=== PATIENT | male | born 1965 | race Caucasian/White ===

== ENCOUNTER 2017-06-12 20:45 | Inpatient (IN) | payer MEDICARE, MEDICAID ==
[~2017-06-12] VITALS: Ht 182.9 cm; Wt 104.5 kg
[~2017-06-12 20:45] MED LIST: ALBU18HF INHALATION; ASPI-664 PO; CYCL-319 PO; D-ME473S2 PO; FLUT16SP17 NASAL; FURO-110 PO; HYDR-3011 PO; IBUP-1542 PO; LISI20TA11 PO; METO-429 PO; POTA-57 PO; PRAV40TA76 PO; PROP150T2 PO; SERT25TA83 PO
[2017-06-12] MEDS ORDERED: ASPIRIN 325 MG TAB PO STA (23:33)
[2017-06-12] MEDS ORDERED: morphine 4 MG/ML VIAL IV STA (23:33)
[2017-06-12] MEDS ORDERED: ONDANSETRON 4 MG INJ IV STA (23:33)
[2017-06-12] MEDS ORDERED: SOD CHLORIDE 0.9% 500 ML IV STA (23:33)
[2017-06-13 00:44] LABS: BASOPHILS % 0.3 % (0.0-2.0); EOSINOPHILS # 0.1 10^3/ul (0.0-0.5); EOSINOPHILS % 1.1 % (0.0-7.0); HEMATOCRIT 41.7 % (42.0-52.0); LYMPHOCYTES # 1.8 10^3/ul (0.8-2.9); LYMPHOCYTES % 22.8 % (15.0-51.0); MEAN CORPUSCULAR HEMOGLOBIN 27.4 pg (29.0-33.0); MEAN CORPUSCULAR HGB CONC 31.2 g/dl (32.0-37.0); MEAN CORPUSCULAR VOLUME 87.8 fl (82.0-101.0); MONOCYTE # 0.6 10^3/ul (0.3-0.9); MONOCYTES % 7.4 % (0.0-11.0); PLATELET COUNT 186 10^3/UL (140-415); RED BLOOD COUNT 4.75 10^6/ul (4.70-6.10); RED CELL DISTRIBUTION WIDTH 13.4 % (11.5-14.5)
[2017-06-13 01:02] LABS: ALBUMIN 4.1 g/dl (3.3-4.9); ALBUMIN/GLOBULIN RATIO 0.82; BILIRUBIN,INDIRECT 0.1 mg/dl (0-1.1); BILIRUBIN,TOTAL 0.1 mg/dl (0.2-1.3); CREATININE 1.44 mg/dl (0.61-1.24); POTASSIUM 4.3 mmol/L (3.5-5.1); TOTAL PROTEIN 9.1 g/dl (6.1-8.1)
[2017-06-13 01:15] LABS: TROPONIN-I 0.027 ng/ml (0.00-0.12)
--- NOTE | 2017-06-13 01:28 | RADRPT ---
PROCEDURE: XR Chest. CLINICAL INDICATION: Chest pain. TECHNIQUE: Single frontal view of the chest. COMPARISON: 06/04/2017. FINDINGS: Cardiomegaly with tortuous thoracic aorta. Mild hypoinflation of the bilateral lungs. Mild vascula r crowding at lung bases. Mild discoid atelectasis at the right mid lung. Hypoinflated lungs are oth erwise substantially clear. No signs of pleural fluid or pneumothorax are seen. The osseous structu res and soft tissues are unremarkable. IMPRESSION: Mild discoid atelectasis at the right mid lung, with mild hypoinflation of the bilateral lungs. RPTAT: [facility] Physician Bernard Date Time Electronically viewed and signed by Physician Bernard on 06/13/2017 01:28 RS/
[2017-06-13] MEDS ORDERED: POTA-57 PO (02:05)
--- NOTE | 2017-06-13 03:40 | ERA ---
ER Documentation Chief Complaint Date/Time DATE: 06/13/17 TIME: 03:39 Chief Complaint CHEST PAIN RADIATING TO NECK/LEFT SHOULDER, SOB HPI 55-year-old male which is very radiated to his neck and left shoulder. With associated shortness of breath. Mild diaphoresis. No nausea no vomiting no chills. Pain mild to moderate intensity. Crushing substernal that radiates to the left side. ROS All systems reviewed and are negative except as per history of present illness. Medications Home Meds Reported Medications Potassium Chloride* (Klor-Con*) 20 Meq Tabsr, 20 MEQ PO DAILY, TAB.SA 06/13/17 Cyclobenzaprine Hcl* (Cyclobenzaprine Hcl*) 10 Mg Tablet, 10 MG PO TID, #90 TAB 06/04/17 Aspirin* (Aspirin* EC) 81 Mg Tablet.dr, 81 MG PO DAILY, TAB 06/04/17 Albuterol Sulfate* (Ventolin HFA*) 18 Gm Hfa.aer.ad, 2 PUFF INHALATION Q4H Y for NEEDED, #1 INHALER 06/04/17 Sertraline Hcl* (Sertraline Hcl*) 25 Mg Tablet, 25 MG PO QAM, #30 TAB 06/04/17 Propafenone Hcl* (Propafenone Hcl*) 150 Mg Tablet, 225 MG PO Q8, TAB 06/04/17 Pravastatin Sodium* (Pravastatin Sodium*) 40 Mg Tablet, 40 MG PO HS, TAB 06/04/17 Metoprolol Tartrate* (Lopressor*) 50 Mg Tab, 50 MG PO BID, #60 TAB 06/04/17 Lisinopril* (Lisinopril*) 20 Mg Tablet, 20 MG PO DAILY, #30 TAB 06/04/17 Furosemide* (Lasix*) 20 Mg Tablet, 20 MG PO DAILY, TAB 06/04/17 Ibuprofen* (Ibuprofen*) 600 Mg Tablet, 600 MG PO Q8 Y for PRN, TAB 06/04/17 Potassium Chloride* (Klor-Con*) 20 Meq Tabsr, 20 MEQ PO DAILY, TAB.SA 06/04/17 Hydroxyzine Hcl* (Hydroxyzine Hcl*) 25 Mg Tablet, 50 MG PO QHS Y for ITCHING, # 30 TAB 06/04/17 Fluticasone Propionate* (Fluticasone Propionate* Nasal) 50 Mcg/[place] - 16 Gm [place].susp, 1 SPRAY NASAL DAILY, #1 BOTTLE TO EACH NOSTRIL 06/04/17 Dextromethorphan Hb-Promethazine Hcl* (Promethazine DM* Syrup) 473 Ml Syrup, 5 ML PO Q6 Y for COUGH, ML 06/04/17 Allergies Allergies: Coded Allergies: aripiprazole (Unverified Adverse Reaction, Unknown, 06/13/17) benztropine (Unverified Adverse Reaction, Unknown, 06/13/17) buspirone (Unverified Adverse Reaction, Unknown, 06/13/17) cocaine (Unverified Adverse Reaction, Unknown, 06/13/17) codeine (Unverified Adverse Reaction, Unknown, 06/13/17) divalproex sodium (Unverified Adverse Reaction, Unknown, 06/13/17) haloperidol (Unverified Adverse Reaction, Unknown, 06/13/17) lithium (Unverified Adverse Reaction, Unknown, 06/13/17) methylphenidate (Unverified Adverse Reaction, Unknown, 06/13/17) paroxetine (Unverified Adverse Reaction, Unknown, 06/13/17) quetiapine (Unverified Adverse Reaction, Unknown, 06/13/17) trazodone (Unverified Adverse Reaction, Unknown, 06/13/17) trimipramine (Unverified Adverse Reaction, Unknown, 06/13/17) PMhx/Soc History of Surgery: Yes (l carpal tunnel, l knee) Anesthesia Reaction: No Hx Neurological Disorder: Yes (TBI - AGE 5) Hx Respiratory Disorders: Yes (asthma) Hx Cardiac Disorders: Yes (a fib, htn) Hx Psychiatric Problems: Yes (anxiety, PTSD, bipolar, schizophrenia) Hx Alcohol Use: No Hx Substance Use: No Hx Tobacco Use: No Smoking Status: Never smoker Physical Exam Vitals Vital Signs Date Time Temp Pulse Resp B/P Pulse Ox O2 Delivery O2 Flow Rate FiO2 06/13/17 02:00 98.7 76 12 133/85 100 Nasal Cannula 06/13/17 00:45 98.4 76 16 137/94 100 Nasal Cannula 06/12/17 23:40 98.4 16 122/88 95 Room Air 06/12/17 21:06 98.3 102 18 133/77 97 Physical Exam Const: [] Head: Atraumatic Eyes: Normal Conjunctiva ENT: Normal External Ears, Nose and Mouth. Neck: Full range of motion..~ No meningismus. Resp: Clear to auscultation bilaterally Cardio: Regular rate and rhythm, no murmurs Abd: Soft, non tender, non distended. Normal bowel sounds Skin: No petechiae or rashes Back: No midline or flank tenderness Ext: No cyanosis, or edema Neur: Awake and alert Psych: Normal Mood and Affect Result Diagram: 06/12/173 06/12/173 Results 24 hrs Laboratory Tests Test 06/12/17 23:33 White Blood Count 8.010^3/ul Red Blood Count 4.7510^6/ul Hemoglobin 13.0g/dl Hematocrit 41.7% Mean Corpuscular Volume 87.8fl Mean Corpuscular Hemoglobin 27.4pg Mean Corpuscular Hemoglobin Concent 31.2g/dl Red Cell Distribution Width 13.4% Platelet Count 07911^3/UL Mean Platelet Volume 11.0fl Neutrophils % 68.0% Lymphocytes % 22.8% Monocytes % 7.4% Eosinophils % 1.1% Basophils % 0.3% Nucleated Red Blood Cells % 0.0/100WBC Neutrophils # (Manual) 5.410^3/ul Lymphocytes # 1.810^3/ul Monocytes # 0.610^3/ul Eosinophils # 0.110^3/ul Basophils # 0.010^3/ul Nucleated Red Blood Cells # 0.010^3/ul Sodium Level 141mmol/L Potassium Level 4.3mmol/L Chloride Level 98mmol/L Carbon Dioxide Level 29mmol/L Anion Gap 18 Blood Urea Nitrogen 21mg/dl Creatinine 1.44mg/dl Glucose Level 93mg/dl Calcium Level 9.0mg/dl Total Bilirubin 0.1mg/dl Direct Bilirubin 0.00mg/dl Indirect Bilirubin 0.1mg/dl Aspartate Amino Transf (AST/SGOT) 34IU/L Alanine Aminotransferase (ALT/SGPT) 26IU/L Alkaline Phosphatase 76IU/L Troponin I 0.027ng/ml B-Type Natriuretic Peptide 21PG/ML Total Protein 9.1g/dl Albumin 4.1g/dl Globulin 5.00g/dl Albumin/Globulin Ratio 0.82 Current Medications Medications (Trade) Dose Ordered Sig/Caroline Route PRN Reason Start Time Stop Time Status Last Admin Dose Admin Sodium Chloride (NS) 500 ml @ 500 mls/hr Q1H STAT IV 06/12/17 23:33 06/13/17 00:32 DC 06/12/17 23:39 Aspirin (Aspirin) 325 mg ONCE STAT PO 06/12/17 23:33 06/12/17 23:34 DC 06/12/17 23:41 Morphine Sulfate (morphine) 4 mg ONCE STAT IV 06/12/17 23:33 06/12/17 23:34 DC 06/12/17 23:44 Ondansetron HCl (Zofran Inj) 4 mg ONCE STAT IV 06/12/17 23:33 06/12/17 23:34 DC 06/12/17 23:41 Procedures/MDM EKG: Rate/Rhythm: Normal Sinus Rhythm QRS, ST, T-waves: No changes consistent w/ acute ischemia Impression: No evidence of ischemia or arrhythmia Chest X-ray 1V Interpreted by me: Soft Tissue: No acute abnormalities Bones: No acute abnormalities Mediastinum/Cardiac Silhouette/Lungs: No acute abnormalities Patient's symptoms are concerning for cardiac cause will require inpatient workup and continuous monitoring. Further w/u for ischemia, arrhythmia, PE or dissection will be deferred to the inpatient team. Accepting Care Team: Current data and ongoing care discussed. Time: 3:30 AM Primary Provider: Hospitalist Consulting: [XOXOXO] Outstanding Data: none Departure Diagnosis: Primary Impression: Chest pain Qualified Code: R07.9 - Chest pain, unspecified type Condition: Serious JAILENE HADLEY Jun 13, 2017 03:40
[2017-06-13] MEDS ORDERED: ONDANSETRON 4 MG INJ IV PRN (07:00)
[2017-06-13] MEDS ORDERED: PROMETHAZINE/DM (CUP) PO PRN (07:00)
[2017-06-13] MEDS ORDERED: ALBUTEROL/IPRATROPIUM (NEB) 3 ML AMP HHN PRN (07:00)
[2017-06-13] MEDS ORDERED: morphine 2 MG INJ IV PRN (07:00)
[2017-06-13] MEDS ORDERED: NACL 0.9% 3 ML SYG IV SCH (07:00)
[2017-06-13] MEDS ORDERED: LORAZEPAM 2 MG INJ IV PRN (07:00)
[2017-06-13] MEDS ORDERED: hydrOXYzine HCL 25 MG TAB PO PRN (07:00)
[2017-06-13] MEDS ORDERED: IBUPROFEN 600 MG TAB PO PRN (07:00)
[2017-06-13] MEDS ORDERED: ACETAMINOPHEN 325 MG TAB PO PRN (07:00)
[2017-06-13 08:59] LABS: BASOPHILS % 0.2 % (0.0-2.0); EOSINOPHILS # 0.1 10^3/ul (0.0-0.5); EOSINOPHILS % 1.1 % (0.0-7.0); HEMATOCRIT 39.9 % (42.0-52.0); HEMOGLOBIN 12.8 g/dl (14.0-18.0); LYMPHOCYTES # 1.4 10^3/ul (0.8-2.9); LYMPHOCYTES % 26.2 % (15.0-51.0); MEAN CORPUSCULAR HEMOGLOBIN 28.2 pg (29.0-33.0); MEAN CORPUSCULAR HGB CONC 32.1 g/dl (32.0-37.0); MEAN CORPUSCULAR VOLUME 87.9 fl (82.0-101.0); MEAN PLATELET VOLUME 10.2 fl (7.4-10.4); MONOCYTE # 0.4 10^3/ul (0.3-0.9); MONOCYTES % 7.7 % (0.0-11.0); NEUTROPHILS % 64.6 % (39.0-77.0); PLATELET COUNT 145 10^3/UL (140-415); RED BLOOD COUNT 4.54 10^6/ul (4.70-6.10); RED CELL DISTRIBUTION WIDTH 13.1 % (11.5-14.5); WHITE BLOOD COUNT 5.3 10^3/ul (4.8-10.8)
[2017-06-13] MEDS ORDERED: LISINOPRIL 20 MG TAB PO SCH (09:00)
[2017-06-13] MEDS ORDERED: ALBUTEROL HFA 8 GM INHALER INH PRN (09:00)
[2017-06-13 09:21] LABS: ALBUMIN 3.5 g/dl (3.3-4.9); ALBUMIN/GLOBULIN RATIO 0.87; BILIRUBIN,INDIRECT 0.1 mg/dl (0-1.1); BILIRUBIN,TOTAL 0.1 mg/dl (0.2-1.3); CALCIUM 8.6 mg/dl (8.4-10.2); CHOL/HDL RATIO 1.8 RATIO; CREATININE 1.32 mg/dl (0.61-1.24); POTASSIUM 4.5 mmol/L (3.5-5.1); TOTAL PROTEIN 7.5 g/dl (6.1-8.1)
[2017-06-13 09:29] LABS: CK-MB 1.98 ng/ml (0.0-2.4)
[2017-06-13 09:34] LABS: TROPONIN-I 0.031 ng/ml (0.00-0.12)
[2017-06-13] MEDS: CYCLOBENZAPRINE 10 MG TAB PO SCH ×3 (09:35→21:48)
[2017-06-13] MEDS: POTASSIUM CHLORIDE (SR) 20 MEQ TAB PO SCH (09:35)
[2017-06-13] MEDS: METOPROLOL 50 MG TAB PO SCH ×2 (09:35→20:55)
[2017-06-13] MEDS: FUROSEMIDE 20 MG TAB PO SCH (09:36)
[2017-06-13] MEDS: HEPARIN 5,000 UNIT/0.5 ML VIAL SC SCH ×2 (09:37→21:00)
[2017-06-13 09:50] LABS: THYROID STIMULATING HORMONE 1.22 MIU/L (0.465-4.680)
--- NOTE | 2017-06-13 09:56 | HP ---
Date/Time of Note Date/Time of Note DATE: 06/13/17 TIME: 09:46 Assessment/Plan VTE Prophylaxis VTE Prophylaxis Intervention: heparin Lines/Catheters IV Catheter Type (from Nrsg): Saline Lock Assessment/Plan Assessment/Plan 1. Chest pain: Pain was reproducible on palpation and as such believe this is musculoskeletal. Given his psychiatric history however it will be better if he is ruled out for ACS. Will send additional troponins. Obtain a 2D echo -Supplemental oxygen, aspirin and if blood pressure allows beta-duy. Will also provide as needed nitro and morphine 2. History of A-fib: Currently in sinus rhythm -Continue meds 3. History of hypertension -Continue antihypertensives adjustment as needed 4. History of asthma and sleep apnea -Supplemental oxygen, breathing treatments and as needed steroid -Positive pressure ventilation as needed 5. Schizophrenia/bipolar/PTSD: pt currently denying suicidal or homicidal ideation. Note however that he was here in the ER about a week ago reporting suicidal ideation and at that time he was evaluated by telemetry psych. -Continue psych meds 6. Chronic kidney disease -Avoid nephrotoxins -Nephrology consult 7. Obesity with a BMI of 31 -Weight reduction advised HPI/ROS Admit Date/Time Admit Date/Time Hx of Present Illness This is a 51-year-old male with a history of traumatic brain injury, hypertension, A. fib, asthma, schizophrenia, bipolar disorder, PTSD, sleep apnea and CKD who presented to the emergency department complaining of chest pain. He said pain started a few hours prior to arrival to the ER. Chest pain is left-sided with radiation to the left side of his neck. He reported shortness of breath but denied nausea vomiting or diaphoresis. He actually said chest pain is somehow better when walking. Denied similar chest pain in the past. On my physical exam, pain was reproducible on palpation. Of note the patient presented here to our ER about a week ago reporting suicidal ideation. At that time he was evaluated by telemetry psych. When he presented to the ER today, initial vitals were stable. Labs shows that his first troponin is negative, creatinine is 1.44, hemoglobin 13 otherwise rest of his labs are within acceptable range. EKG was no ST-T wave abnormality. Chest x-ray shows right midlung discoid atelectasis. PMH/Family/Social Past Medical History traumatic brain injury, hypertension, A. fib, asthma, schizophrenia, bipolar disorder, PTSD, sleep apnea and CKD Social History Alcohol Use: none Smoking Status: Never smoker Drug Use: none Exam/Review of Systems Vital Signs Vitals Vital Signs Date Time Temp Pulse Resp B/P Pulse Ox O2 Delivery O2 Flow Rate FiO2 06/13/17 07:58 61 18 114/67 98 Nasal Cannula 2.0 06/13/17 04:44 98.4 Exam Constitutional: other (Overweight male lying in the gurney. Sleepy but arousable. No acute distress) Head: atraumatic, normocephalic Eyes: EOMI, PERRL Respiratory: clear to auscultation, normal air movement Cardiovascular: nl pulses, regular rate and rhythm Gastrointestinal: non-tender, soft Extremities: normal pulses Labs Result Diagram: 06/13/1782206/13/17822 Medications Medications Current Medications Lorazepam (Ativan) 0.5 mg Q6H PRN IV ANXIETY; Start 06/13/17 at 07:00 Ondansetron HCl (Zofran Inj) 4 mg Q6H PRN IV NAUSEA AND/OR VOMITING; Start at 07:00 Acetaminophen (Tylenol Tab) 650 mg Q6H PRN PO PAIN LEVEL 1-3 OR FEVER; Start at 07:00 Morphine Sulfate (morphine) 2 mg Q4H PRN IV PAIN LEVEL 7-10; Start 06/13/17 at 07:00 Heparin Sodium (Porcine) (Heparin (5000 Units/0.5 ml)) 5,000 unit Q12 SC Last administered on 06/13/17 09:37; Admin Dose 5,000 UNIT; Start 06/13/17 at 09:00 Aspirin (Halfprin) 81 mg DAILY PO ; Start 06/13/17 at 09:00 Cyclobenzaprine HCl (Flexeril) 10 mg TID PO Last administered on 06/13/17 09: 35; Admin Dose 10 MG; Start 06/13/17 at 09:00 Promethazine HCl/ Dextromethorphan (Phenergan-Dm) 5 ml Q6H PRN PO COUGH; Start 06/13/17 at 07:00 Fluticasone Propionate (Flonase 0.05% Nasal) 1 spray DAILY NASAL ; Start at 09:00 Furosemide (Lasix) 20 mg DAILY PO Last administered on 06/13/17 09:36; Admin Dose 20 MG; Start 06/13/17 at 09:00 Hydroxyzine HCl (Atarax) 50 mg QHS PRN PO ITCHING; Start 06/13/17 at 07:00 Ibuprofen (Motrin) 600 mg Q8H PRN PO PAIN; Start 06/13/17 at 07:00 Lisinopril (Zestril) 20 mg DAILY PO ; Start 06/13/17 at 09:00 Metoprolol Tartrate (Lopressor) 50 mg BID PO Last administered on 06/13/17 09: 35; Admin Dose 50 MG; Start 06/13/17 at 09:00 Potassium Chloride (Klor-Con 20) 20 meq DAILY PO Last administered on 09:35; Admin Dose 20 MEQ; Start 06/13/17 at 09:00 Propafenone HCl (Rythmol) 225 mg Q8 PO ; Start 06/13/17 at 14:00 Sertraline HCl (Zoloft) 25 mg QAM PO ; Start 06/13/17 at 09:00 Atorvastatin Calcium (Lipitor) 10 mg DAILY@21 PO ; Start 06/13/17 at 21:00 JAILENE PHILLIPS MD Jun 13, 2017 09:56
[2017-06-13] MEDS: FLUTICASONE 0.05% 16 GM NAS SPRAY NASAL SCH (10:08)
[2017-06-13] MEDS: ASPIRIN (EC) 81 MG TAB PO SCH (10:08)
[2017-06-13] MEDS: SERTRALINE 50 MG TAB PO SCH (10:09)
[2017-06-13 11:47] LABS: ADD UMIC NO; UR AMORPHOUS CRYSTAL FEW /HPF (NONE SEEN); UR ASCORBIC ACID NEGATIVE (NEGATIVE); UR BILIRUBIN (Dip) NEGATIVE (NEGATIVE); UR BLOOD (Dip) NEGATIVE (NEGATIVE); UR CLARITY SLIGHTLY CLOUDY (CLEAR); UR COLOR YELLOW (YELLOW); UR GLUCOSE (Dip) NEGATIVE (NEGATIVE); UR KETONES (Dip) NEGATIVE (NEGATIVE); UR LEUKOCYTE ESTERASE (Dip) NEGATIVE Leu/ul (NEGATIVE); UR NITRITE (Dip) NEGATIVE (NEGATIVE); UR RBC 1 /HPF (0-5); UR SPECIFIC GRAVITY (Dip) 1.012 (1.003-1.030); UR TOTAL PROTEIN (Dip) NEGATIVE (NEGATIVE); UR UROBILINOGEN (Dip) NEGATIVE (NEGATIVE)
--- NOTE | 2017-06-13 12:22 | CONS ---
DATE OF ADMISSION: 06/12/2017 DATE OF CONSULTATION: 06/13/2017 REASON FOR CONSULTATION: Acute kidney injury. REFERRING PHYSICIAN: Daivd Ayala MD HISTORY OF PRESENT ILLNESS: This is a 51-year-old male with a past medical history traumatic brain injury. History of hypertension, a-fib, asthma, schizophrenia, bipolar disorder, post-traumatic stress disorder, sleep apnea and reported history of CKD, who presents emergency room complaining of chest pain. The patient's symptoms started a few hours prior to arrival. He describe left-sided pain, with radiation to his neck, with shortness of breath. The patient came to the emergency room. Upon arrival, the patient's initial troponin was negative his creatinine is 1.44. The patient had EKG which showed no ST wave abnormality. Chest x-ray showed discoid atelectasis. In the emergency room patient was given IV fluids, aspirin. In terms of patient's renal history, the patient herself is unaware of having chronic kidney disease. The patient denies any rashes, hemoptysis, hematemesis or hematochezia. Of note, patient does take KETURAH inhibitor and ibuprofen in the outpatient setting, and diuretics. PAST MEDICAL HISTORY: As stated above. History of traumatic brain injury. Hypertension, a-fib, asthma, schizophrenia, posttraumatic stress disorder, bipolar disorder, sleep apnea and CKD. SOCIAL HISTORY: Does not drink, smoke, or do drugs. FAMILY HISTORY: Noncontributory. MEDICATION: Reviewed. PAST SURGICAL HISTORY: None. REVIEW OF SYSTEMS: A 14 point review of systems was conducted. Pertinent positives are stated in HPI, otherwise negative. PHYSICAL EXAMINATION: VITAL SIGNS: Blood pressure 136/92, respirations 18, pulse 72, temperature 98.4. HEENT: Head is normocephalic. NECK: Supple. HEART: Regular rate. LUNGS: Diminished breath sounds at the base. ABDOMEN: Soft, nontender to palpation. No guarding. EXTREMITIES: Negative for clubbing, cyanosis. No edema. DERMATOLOGIC: No rashes. MUSCULOSKELETAL: No joint effusion. NEUROLOGIC: No change in exam. MEDICATION: Patient medications reviewed. LABORATORY: Show sodium 143, potassium 4.5, chloride 102, BUN 60, creatinine 1.28. White count 5.3, hemoglobin 9.8, hematocrit 29.9, platelet count is 145,000. IMPRESSION AND PLAN: 1. Nonoliguric acute kidney injury with unknown baseline creatinine. Etiology may be secondary to a hemodynamics, diuretic therapy. KETURAH inhibitor effect, nonsteroidal anti- inflammatory drugs use. The patient's renal function has improved with some mild IV hydration. Plan at this point is to do a full evaluation. Will check UA with microanalysis. Check urine electrolytes. Check renal ultrasound. Would recommend to hold nonsteroidal anti-inflammatory drugs, KETURAH inhibitor at this time. Would otherwise continue supportive care. Renally dose medications. Avoid nephrotoxins. 2. Anemia, monitor hemoglobin and hematocrit levels. 3. Mineral bone disorder. Monitor calcium and phosphorus levels. 4. Hypertension. Continue current blood pressure regimen. 5. Chest pain. The patient being ruled out for acute coronary syndrome. Continue to monitor. Follow up with Cardiology. 6. Atrial fibrillation. Currently in sinus rhythm. 7. History of asthma, sleep apnea, continue supplemental oxygen. 8. History of bipolar disorder, schizophrenia. Continue current treatment plan. Thank you, Dr. Ayala, for this interesting consult. It will be a pleasure to follow patient with you throughout the hospital course. Dictated By: Omari Glasgow DO /latasha/cristopher /Document#: [id number]
--- NOTE | 2017-06-13 13:10 | PN ---
Date/Time of Note Date/Time of Note DATE: 06/13/17 TIME: 13:02 Assessment/Plan VTE Prophylaxis VTE Prophylaxis Intervention: LMWH Lines/Catheters IV Catheter Type (from Nrs): Saline Lock Assessment/Plan Chief Complaint/Hosp Course S: Events noted O: vss; sr PE no pallor/jvd s1s2 reg; no m/r/g ctab; tender bs+ nt nd; no r/r/g no edema/ Sukh's A/P 1. Atypical Chest Pain; stable, ro acs. probably msclskltl. 2. Chr Htn/DL/obesity/metabolic syndrome; cont rfm. 3. CKD; avoid nsaids 4. Chr bipolor/schizophrenia/ptsd; supportive care 5. Permanent? A Fib 6. H/o TBI 7. Chr JOSE 8. Pre Dm 5.5 9. Chr Asthma Problems: Exam/Review of Systems Vital Signs Vitals Vital Signs Date Time Temp Pulse Resp B/P Pulse Ox O2 Delivery O2 Flow Rate FiO2 06/13/17 11:05 98.2 73 18 136/108 99 Nasal Cannula 2.0 Results Result Diagram: 06/13/17 0823 06/13/17 0823 Results 24 hrs Laboratory Tests Test 06/12/17 23:33 06/13/17 08:23 06/13/17 10:40 White Blood Count 8.0 # 5.3 # Red Blood Count 4.75 4.54 L Hemoglobin 13.0 L 12.8 L Hematocrit 41.7 L 39.9 L Mean Corpuscular Volume 87.8 87.9 Mean Corpuscular Hemoglobin 27.4 L 28.2 L Mean Corpuscular Hemoglobin Concent 31.2 L 32.1 Red Cell Distribution Width 13.4 13.1 Platelet Count 186 # 145 # Mean Platelet Volume 11.0 H 10.2 Neutrophils % 68.0 64.6 Lymphocytes % 22.8 26.2 Monocytes % 7.4 7.7 Eosinophils % 1.1 1.1 Basophils % 0.3 0.2 Nucleated Red Blood Cells % 0.0 0.0 Neutrophils # (Manual) 5.4 3.4 Lymphocytes # 1.8 1.4 Monocytes # 0.6 0.4 Eosinophils # 0.1 0.1 Basophils # 0.0 0.0 Nucleated Red Blood Cells # 0.0 0.0 Sodium Level 141 143 Potassium Level 4.3 4.5 Chloride Level 98 102 Carbon Dioxide Level 29 30 Anion Gap 18 H 16 Blood Urea Nitrogen 21 H 16 Creatinine 1.44 H 1.32 H Glucose Level 93 86 Calcium Level 9.0 8.6 Total Bilirubin 0.1 L 0.1 L Direct Bilirubin 0.00 0.00 Indirect Bilirubin 0.1 0.1 Aspartate Amino Transf (AST/SGOT) 34 21 Alanine Aminotransferase (ALT/SGPT) 26 29 Alkaline Phosphatase 76 63 Troponin I 0.027 0.031 B-Type Natriuretic Peptide 21 Total Protein 9.1 H 7.5 # Albumin 4.1 3.5 Globulin 5.00 H 4.00 H Albumin/Globulin Ratio 0.82 0.87 Hemoglobin A1c 5.5 Creatine Kinase 407 H Creatine Kinase Index 0.5 Creatinine Kinase MB (Mass) 1.98 Triglycerides Level 69 Cholesterol Level 87 L LDL Cholesterol, Calculated 26 HDL Cholesterol 47 Cholesterol/HDL Ratio 1.8 Thyroid Stimulating Hormone (TSH) 1.220 Urine Color YELLOW Urine Clarity SLIGHTLY CLOUDY A Urine pH 8.0 Urine Specific [place] 1.012 Urine Ketones NEGATIVE Urine Nitrite NEGATIVE Urine Bilirubin NEGATIVE Urine Urobilinogen NEGATIVE Urine Leukocyte Esterase NEGATIVE Urine Microscopic RBC 1 Urine Microscopic WBC 1 Urine Amorphous Crystals FEW A Urine Hemoglobin NEGATIVE Urine Random Creatinine 81.64 Urine Random Sodium 128 H Urine Glucose NEGATIVE Urine Total Protein 12.0 H Medications Medications Current Medications Lorazepam (Ativan) 0.5 mg Q6H PRN IV ANXIETY; Start 06/13/17 at 07:00 Ondansetron HCl (Zofran Inj) 4 mg Q6H PRN IV NAUSEA AND/OR VOMITING; Start at 07:00 Acetaminophen (Tylenol Tab) 650 mg Q6H PRN PO PAIN LEVEL 1-3 OR FEVER; Start at 07:00 Morphine Sulfate (morphine) 2 mg Q4H PRN IV PAIN LEVEL 7-10; Start 06/13/17 at 07:00 Heparin Sodium (Porcine) (Heparin (5000 Units/0.5 ml)) 5,000 unit Q12 SC Last administered on 06/13/17 09:37; Admin Dose 5,000 UNIT; Start 06/13/17 at 09:00 Aspirin (Halfprin) 81 mg DAILY PO Last administered on 06/13/17 10:08; Admin Dose 81 MG; Start 06/13/17 at 09:00 Cyclobenzaprine HCl (Flexeril) 10 mg TID PO Last administered on 06/13/17 09: 35; Admin Dose 10 MG; Start 06/13/17 at 09:00 Promethazine HCl/ Dextromethorphan (Phenergan-Dm) 5 ml Q6H PRN PO COUGH; Start 06/13/17 at 07:00 Fluticasone Propionate (Flonase 0.05% Nasal) 1 spray DAILY NASAL Last administered on 06/13/17 10:08; Admin Dose 1 SPRAY; Start 06/13/17 at 09:00 Furosemide (Lasix) 20 mg DAILY PO Last administered on 06/13/17 09:36; Admin Dose 20 MG; Start 06/13/17 at 09:00 Hydroxyzine HCl (Atarax) 50 mg QHS PRN PO ITCHING; Start 06/13/17 at 07:00 Ibuprofen (Motrin) 600 mg Q8H PRN PO PAIN; Start 06/13/17 at 07:00 Lisinopril (Zestril) 20 mg DAILY PO Last administered on 06/13/17 10:08; Admin Dose 20 MG; Start 06/13/17 at 09:00; Status Future Hold Metoprolol Tartrate (Lopressor) 50 mg BID PO Last administered on 06/13/17 09: 35; Admin Dose 50 MG; Start 06/13/17 at 09:00 Potassium Chloride (Klor-Con 20) 20 meq DAILY PO Last administered on 09:35; Admin Dose 20 MEQ; Start 06/13/17 at 09:00 Propafenone HCl (Rythmol) 225 mg Q8 PO ; Start 06/13/17 at 14:00 Sertraline HCl (Zoloft) 25 mg QAM PO Last administered on 06/13/17 10:09; Admin Dose 25 MG; Start 06/13/17 at 09:00 Atorvastatin Calcium (Lipitor) 10 mg DAILY@21 PO ; Start 06/13/17 at 21:00 IGGY BARRERA MD Jun 13, 2017 13:10
[2017-06-13] MEDS: PROPAFENONE 150 MG TAB PO SCH ×4 (13:24→21:54)
[2017-06-13] MEDS ORDERED: DOCUSATE SODIUM 10 MG/ML (10ML CUP) PO PRN (13:30)
[2017-06-13 17:12] VITALS: TEMP 98.2
[2017-06-13 17:53] VITALS: BP 129/79; PULSE 70; RESP 18
[2017-06-13 18:00] VITALS: Ht 182.9 cm; Wt 104.5 kg
[2017-06-13 19:49] LABS: CK-MB 1.25 ng/ml (0.0-2.4); TROPONIN-I 0.015 ng/ml (0.00-0.12)
[2017-06-13 20:26] VITALS: PULSE 66
[2017-06-13 20:36] VITALS: BP 126/65; RESP 18
[2017-06-13] MEDS: ATORVASTATIN 10 MG TAB PO SCH (20:55)
[2017-06-14] VITALS (13 sets, daily range): BP systolic 120–143; BP diastolic 65–80; PULSE 60–63; RESP 18–19
[2017-06-14] MEDS: PROPAFENONE 150 MG TAB PO SCH ×3 (05:48→21:20)
[2017-06-14 08:16] LABS: BASOPHILS % 0.2 % (0.0-2.0); EOSINOPHILS # 0.1 10^3/ul (0.0-0.5); EOSINOPHILS % 1.4 % (0.0-7.0); HEMOGLOBIN 12.8 g/dl (14.0-18.0); LYMPHOCYTES # 1.2 10^3/ul (0.8-2.9); LYMPHOCYTES % 24.9 % (15.0-51.0); MEAN CORPUSCULAR HEMOGLOBIN 27.6 pg (29.0-33.0); MEAN CORPUSCULAR HGB CONC 31.2 g/dl (32.0-37.0); MEAN CORPUSCULAR VOLUME 88.4 fl (82.0-101.0); MEAN PLATELET VOLUME 10.2 fl (7.4-10.4); MONOCYTE # 0.3 10^3/ul (0.3-0.9); NEUTROPHILS % 65.9 % (39.0-77.0); PLATELET COUNT 149 10^3/UL (140-415); RED BLOOD COUNT 4.64 10^6/ul (4.70-6.10); RED CELL DISTRIBUTION WIDTH 13.3 % (11.5-14.5); WHITE BLOOD COUNT 4.9 10^3/ul (4.8-10.8)
[2017-06-14 08:36] LABS: INR 1.12; PROTIME 14.4 Sec (12.2-14.2); PT RATIO 1.1
[2017-06-14] MEDS: CYCLOBENZAPRINE 10 MG TAB PO SCH ×3 (08:38→21:11)
[2017-06-14] MEDS: ASPIRIN (EC) 81 MG TAB PO SCH (08:38)
[2017-06-14] MEDS: METOPROLOL 50 MG TAB PO SCH ×2 (08:39→21:12)
[2017-06-14] MEDS: FUROSEMIDE 20 MG TAB PO SCH (08:40)
[2017-06-14] MEDS: POTASSIUM CHLORIDE (SR) 20 MEQ TAB PO SCH (08:40)
[2017-06-14] MEDS: SERTRALINE 50 MG TAB PO SCH (08:41)
[2017-06-14 08:43] LABS: ALBUMIN 3.5 g/dl (3.3-4.9); ALBUMIN/GLOBULIN RATIO 0.81; BILIRUBIN,INDIRECT 0.2 mg/dl (0-1.1); BILIRUBIN,TOTAL 0.2 mg/dl (0.2-1.3); CALCIUM 8.8 mg/dl (8.4-10.2); CREATININE 1.24 mg/dl (0.61-1.24); POTASSIUM 4.4 mmol/L (3.5-5.1); TOTAL PROTEIN 7.8 g/dl (6.1-8.1)
[2017-06-14] MEDS: FLUTICASONE 0.05% 16 GM NAS SPRAY NASAL SCH (08:46)
[2017-06-14] MEDS: HEPARIN 5,000 UNIT/0.5 ML VIAL SC SCH ×2 (08:51→21:19)
[2017-06-14 09:45] LABS: MAGNESIUM 1.9 mg/dl (1.7-2.5); PHOSPHORUS 2.5 mg/dl (2.5-4.9)
--- NOTE | 2017-06-14 11:00 | PN ---
DATE: 06/14/2017 SUBJECTIVE DATA: Patient is stable. No events overnight. No fevers, chills, nausea, vomiting. OBJECTIVE DATA: VITAL SIGNS: Blood pressure is 122/69, respirations 18, pulse 61, temperature 98.3. HEENT: Head is normocephalic. NECK: Supple. HEART: Regular rate. LUNGS: Show diminished breath sounds at the base. ABDOMEN: Soft, nontender to palpation. No rebound or guarding. EXTREMITIES: Negative for clubbing, cyanosis. No edema. DERMATOLOGIC: Clean. No rashes. MUSCULOSKELETAL: No joint effusion. NEUROLOGIC: No change in exam. MEDICATIONS: Reviewed. LABORATORY AND DIAGNOSTIC DATA: Shows a BMP within normal limits. A white count 4.9, hemoglobin 12.8, crit 41.0, platelet count is 149. The patient's urinalysis shows a FENa of greater than 1 percent. No significant proteinuria. ASSESSMENT AND PLAN: 1. Nonoliguric acute kidney injury with unknown baseline creatinine. Etiology secondary to hemodynamics, angiotensin- converting enzyme inhibitor effect, nonsteroidal anti- inflammatory use. The patient's renal function has improved with intravenous fluids. At this point, continue current medical management, supportive care. Renally dose all meds. 2. Anemia. Continue to monitor H and H levels. 3. Mineral bone disorder. Continue to monitor calcium and phosphorus levels. 4. Hypertension. Continue current blood pressure regimen. 5. Chest pain. Continue to monitor. Follow up with Cardiology. 6. Atrial fibrillation, rate controlled. 7. History of asthma, sleep apnea. Continue to monitor. 8. History of bipolar disorder, schizophrenia. Continue current treatment plan. Dictated By: Omari Glasgow DO /[email or web address]/miguel /Document#: [id number]
[2017-06-14 13:49] LABS: MICROALBUMIN 1.3 mg/dL
--- NOTE | 2017-06-14 16:12 | PDOCDIS ---
Discharge Instructions DIAGNOSIS Discharge Diagnosis chest pain CONDITION Patient Condition: Stable HOME CARE INSTRUCTIONS: Special Diet: low fat low chol ACTIVITY: Activity Restrictions: Slowly Increase Activity No Sexual Activity Do not Drive FOLLOW UP/APPOINTMENTS Follow-up Plan appt Primary 1week IGGY BARRERA MD Jun 14, 2017 16:12
[2017-06-14] MEDS ORDERED: ACET325T40 PO (16:13)
--- NOTE | 2017-06-14 16:20 | DS ---
Date/Time of Note Date/Time of Note DATE: 06/14/17 TIME: 16:18 Discharge Summary Admission/Discharge Info Admit Date/Time Jun 13, 2017 at 00:37 Discharge Date/Time Discharge Diagnosis chest pain Patient Condition: Stable Consults none Procedures nonne Hx of Present Illness This is a 51-year-old male with a history of traumatic brain injury, hypertension, A. fib, asthma, schizophrenia, bipolar disorder, PTSD, sleep apnea and CKD who presented to the emergency department complaining of chest pain. He said pain started a few hours prior to arrival to the ER. Chest pain is left-sided with radiation to the left side of his neck. He reported shortness of breath but denied nausea vomiting or diaphoresis. He actually said chest pain is somehow better when walking. Denied similar chest pain in the past. On my physical exam, pain was reproducible on palpation. Of note the patient presented here to our ER about a week ago reporting suicidal ideation. At that time he was evaluated by telemetry psych. When he presented to the ER today, initial vitals were stable. Labs shows that his first troponin is negative, creatinine is 1.44, hemoglobin 13 otherwise rest of his labs are within acceptable range. EKG was no ST-T wave abnormality. Chest x-ray shows right midlung discoid atelectasis. Hospital Course Evaluated and managed for chest pain. Ruled out for acute coronary syndrome by enzymes EKG symptoms. Fairly atypical. Stable and fit for discharge. No need for stress test etc. I feel this is musculoskeletal or anxiety related. Troponin is negative. No arrhythmia during hospital stay. O: vss; sr PE no pallor/jvd s1s2 reg; no m/r/g ctab; tender bs+ nt nd; no r/r/g no edema/ Sukh's A/P 1. Atypical Chest Pain; stable, no acs. probably msclskltl. 2. Chr Htn/DL/obesity/metabolic syndrome; cont rfm. 3. CKD; avoid nsaids 4. Chr bipolor/schizophrenia/ptsd; supportive care 5. Permanent? A Fib 6. H/o TBI 7. Chr JOSE 8. Pre Dm 5.5 9. Chr Asthma Home Meds Active Scripts Acetaminophen (MAPAP) 325 Mg Tablet, 650 MG PO Q6H Y for PAIN LEVEL 1-3 OR FEVER for 5 Days, #1 TAB OTC Prov:CHIKYARAPPA,IGGY K MD 06/14/17 Reported Medications Potassium Chloride* (Klor-Con*) 20 Meq Tabsr, 20 MEQ PO DAILY, TAB.SA 06/13/17 Cyclobenzaprine Hcl* (Cyclobenzaprine Hcl*) 10 Mg Tablet, 10 MG PO TID, #90 TAB 06/04/17 Aspirin* (Aspirin* EC) 81 Mg Tablet.dr, 81 MG PO DAILY, TAB 06/04/17 Albuterol Sulfate* (Ventolin HFA*) 18 Gm Hfa.aer.ad, 2 PUFF INHALATION Q4H Y for NEEDED, #1 INHALER 06/04/17 Sertraline Hcl* (Sertraline Hcl*) 25 Mg Tablet, 25 MG PO QAM, #30 TAB 06/04/17 Propafenone Hcl* (Propafenone Hcl*) 150 Mg Tablet, 225 MG PO Q8, TAB 06/04/17 Pravastatin Sodium* (Pravastatin Sodium*) 40 Mg Tablet, 40 MG PO HS, TAB 06/04/17 Metoprolol Tartrate* (Lopressor*) 50 Mg Tab, 50 MG PO BID, #60 TAB 06/04/17 Lisinopril* (Lisinopril*) 20 Mg Tablet, 20 MG PO DAILY, #30 TAB 06/04/17 Furosemide* (Lasix*) 20 Mg Tablet, 20 MG PO DAILY, TAB 06/04/17 Ibuprofen* (Ibuprofen*) 600 Mg Tablet, 600 MG PO Q8 Y for PRN, TAB 06/04/17 Potassium Chloride* (Klor-Con*) 20 Meq Tabsr, 20 MEQ PO DAILY, TAB.SA 06/04/17 Hydroxyzine Hcl* (Hydroxyzine Hcl*) 25 Mg Tablet, 50 MG PO QHS Y for ITCHING, # 30 TAB 06/04/17 Fluticasone Propionate* (Fluticasone Propionate* Nasal) 50 Mcg/[place] - 16 Gm [place].susp, 1 SPRAY NASAL DAILY, #1 BOTTLE TO EACH NOSTRIL 06/04/17 Dextromethorphan Hb-Promethazine Hcl* (Promethazine DM* Syrup) 473 Ml Syrup, 5 ML PO Q6 Y for COUGH, ML 06/04/17 Follow-up Plan pcp -1wk 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 -2wks Primary Care Provider Care Physician No Primary 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 - 2wks Time spent on discharge: < 30 minutes Pending Labs Laboratory Tests Test 06/13/17 19:06 06/14/17 07:37 06/14/17 07:41 Creatine Kinase 383IU/L (23-200) Creatine Kinase Index 0.3 Creatinine Kinase MB (Mass) 1.25ng/ml (0.0-2.4) Troponin I 0.015ng/ml (0.00-0.12) 0.019ng/ml (0.00-0.12) Phosphorus Level 2.5mg/dl (2.5-4.9) Magnesium Level 1.9mg/dl (1.7-2.5) White Blood Count 4.910^3/ul (4.8-10.8) Red Blood Count 4.6410^6/ul (4.70-6.10) Hemoglobin 12.8g/dl (14.0-18.0) Hematocrit 41.0% (42.0-52.0) Mean Corpuscular Volume 88.4fl (82.0-101.0) Mean Corpuscular Hemoglobin 27.6pg (29.0-33.0) Mean Corpuscular Hemoglobin Concent 31.2g/dl (32.0-37.0) Red Cell Distribution Width 13.3% (11.5-14.5) Platelet Count 14489^3/UL (140-415) Mean Platelet Volume 10.2fl (7.4-10.4) Neutrophils % 65.9% (39.0-77.0) Lymphocytes % 24.9% (15.0-51.0) Monocytes % 7.0% (0.0-11.0) Eosinophils % 1.4% (0.0-7.0) Basophils % 0.2% (0.0-2.0) Nucleated Red Blood Cells % 0.0/100WBC (0.0-0.0) Neutrophils # (Manual) 3.210^3/ul (1.7-7.5) Lymphocytes # 1.210^3/ul (0.8-2.9) Monocytes # 0.310^3/ul (0.3-0.9) Eosinophils # 0.110^3/ul (0.0-0.5) Basophils # 0.010^3/ul (0.0-0.1) Nucleated Red Blood Cells # 0.010^3/ul (0.0-0.0) Prothrombin Time 14.4Sec (12.2-14.2) Prothrombin Time Ratio 1.1 INR International Normalized Ratio 1.12 Sodium Level 142mmol/L (135-144) Potassium Level 4.4mmol/L (3.5-5.1) Chloride Level 102mmol/L (97-110) Carbon Dioxide Level 31mmol/L (21-31) Anion Gap 13 (8-16) Blood Urea Nitrogen 13mg/dl (7-20) Creatinine 1.24mg/dl (0.61-1.24) Glucose Level 94mg/dl (70-220) Calcium Level 8.8mg/dl (8.4-10.2) Total Bilirubin 0.2mg/dl (0.2-1.3) Direct Bilirubin 0.00mg/dl (0.00-0.20) Indirect Bilirubin 0.2mg/dl (0-1.1) Aspartate Amino Transf (AST/SGOT) 16IU/L (15-46) Alanine Aminotransferase (ALT/SGPT) 26IU/L (13-69) Alkaline Phosphatase 62IU/L (42-121) Total Protein 7.8g/dl (6.1-8.1) Albumin 3.5g/dl (3.3-4.9) Globulin 4.30g/dl (1.3-3.2) Albumin/Globulin Ratio 0.81 Lipase 59U/L (23-300) IGGY BARRERA MD Jun 14, 2017 16:20
[2017-06-14] MEDS: ATORVASTATIN 10 MG TAB PO SCH (21:11)
[2017-06-15] VITALS: PULSE 65
[2017-06-15 03:26] VITALS: BP 116/68; RESP 17
[2017-06-15 04:00] VITALS: PULSE 58
[2017-06-15] MEDS: PROPAFENONE 150 MG TAB PO SCH ×2 (05:56→07:51)
[2017-06-15 07:29] VITALS: BP 142/80; RESP 16
[2017-06-15] MEDS: HEPARIN 5,000 UNIT/0.5 ML VIAL SC SCH (07:51)
[2017-06-15 08:00] VITALS: PULSE 67
[2017-06-15] MEDS: FLUTICASONE 0.05% 16 GM NAS SPRAY NASAL SCH (08:04)
[2017-06-15] MEDS: FUROSEMIDE 20 MG TAB PO SCH (08:05)
[2017-06-15] MEDS: POTASSIUM CHLORIDE (SR) 20 MEQ TAB PO SCH (08:05)
[2017-06-15] MEDS: ASPIRIN (EC) 81 MG TAB PO SCH (08:05)
[2017-06-15] MEDS: SERTRALINE 50 MG TAB PO SCH (08:05)
[2017-06-15] MEDS: METOPROLOL 50 MG TAB PO SCH (08:06)
[2017-06-15] MEDS: CYCLOBENZAPRINE 10 MG TAB PO SCH (08:06)
--- NOTE | 2017-06-15 10:22 | PN ---
DATE: 06/15/2017 SUBJECTIVE DATA: Patient is stable. No events overnight. No fevers, chills, nausea, vomiting. No shortness of breath. OBJECTIVE DATA: VITAL SIGNS: Blood pressure 142/80, respirations 16, pulse 68, temperature 97.8. HEENT: Head is normocephalic. NECK: Supple. HEART: Regular rate. LUNGS: Diminished breath sounds at the base. ABDOMEN: Soft, nontender to palpation. No rebound or guarding. EXTREMITIES: Negative for clubbing, cyanosis. No edema. DERMATOLOGIC: No rashes. MUSCULOSKELETAL: No joint effusion. NEUROLOGIC: Unchanged exam. MEDICATIONS: Reviewed. LABORATORY AND DIAGNOSTIC DATA: Been reviewed. No new labs. ASSESSMENT AND PLAN: 1. Nonoliguric acute kidney injury with unknown baseline creatinine. Etiology secondary to hemodynamics. Renal function has improved. Continue current treatment. Supportive care. Renally dose all medications. 2. Anemia. Monitor H and H levels. 3. Mineral bone disorder. Monitor calcium and phosphorus. 4. Hypertension. Continue current blood pressure regimen. 5. Chest pain. Improved. 6. Atrial fibrillation, rate controlled. 7. History of obstructive sleep apnea. Dictated By: Omari Glasgow DO /latasha/faisal /Document#: [id number]
--- NOTE | 2017-06-15 13:04 | DS ---
Date/Time of Note Date/Time of Note DATE: 06/15/17 TIME: 13:03 Discharge Summary Admission/Discharge Info Admit Date/Time Jun 13, 2017 at 00:37 Discharge Date/Time Jun 15, 2017 at 10:23 Discharge Diagnosis chest pain Patient Condition: Stable Hx of Present Illness This is a 51-year-old male with a history of traumatic brain injury, hypertension, A. fib, asthma, schizophrenia, bipolar disorder, PTSD, sleep apnea and CKD who presented to the emergency department complaining of chest pain. He said pain started a few hours prior to arrival to the ER. Chest pain is left-sided with radiation to the left side of his neck. He reported shortness of breath but denied nausea vomiting or diaphoresis. He actually said chest pain is somehow better when walking. Denied similar chest pain in the past. On my physical exam, pain was reproducible on palpation. Of note the patient presented here to our ER about a week ago reporting suicidal ideation. At that time he was evaluated by telemetry psych. When he presented to the ER today, initial vitals were stable. Labs shows that his first troponin is negative, creatinine is 1.44, hemoglobin 13 otherwise rest of his labs are within acceptable range. EKG was no ST-T wave abnormality. Chest x-ray shows right midlung discoid atelectasis. Hospital Course Evaluated and managed for chest pain. Ruled out for acute coronary syndrome by enzymes EKG symptoms. Fairly atypical. Stable and fit for discharge. No need for stress test etc. I feel this is musculoskeletal or anxiety related. Troponin is negative. No arrhythmia during hospital stay. Addendum: Kept in the hospital overnight. No arrhythmias. Stable and discharged. O: vss; sr PE no pallor/jvd s1s2 reg; no m/r/g ctab; tender bs+ nt nd; no r/r/g no edema/ Sukh's A/P 1. Atypical Chest Pain; stable, no acs. probably msclskltl. 2. Chr Htn/DL/obesity/metabolic syndrome; cont rfm. 3. CKD; avoid nsaids 4. Chr bipolor/schizophrenia/ptsd; supportive care 5. Permanent? A Fib 6. H/o TBI 7. Chr JOSE 8. Pre Dm 5.5 9. Chr Asthma Home Meds Active Scripts Acetaminophen (MAPAP) 325 Mg Tablet, 650 MG PO Q6H Y for PAIN LEVEL 1-3 OR FEVER for 5 Days, #1 TAB OTC Prov:IGGY BARRERA MD 06/14/17 Reported Medications Potassium Chloride* (Klor-Con*) 20 Meq Tabsr, 20 MEQ PO DAILY, TAB.SA 06/13/17 Cyclobenzaprine Hcl* (Cyclobenzaprine Hcl*) 10 Mg Tablet, 10 MG PO TID, #90 TAB 06/04/17 Aspirin* (Aspirin* EC) 81 Mg Tablet.dr, 81 MG PO DAILY, TAB 06/04/17 Albuterol Sulfate* (Ventolin HFA*) 18 Gm Hfa.aer.ad, 2 PUFF INHALATION Q4H Y for NEEDED, #1 INHALER 06/04/17 Sertraline Hcl* (Sertraline Hcl*) 25 Mg Tablet, 25 MG PO QAM, #30 TAB 06/04/17 Propafenone Hcl* (Propafenone Hcl*) 150 Mg Tablet, 225 MG PO Q8, TAB 06/04/17 Pravastatin Sodium* (Pravastatin Sodium*) 40 Mg Tablet, 40 MG PO HS, TAB 06/04/17 Metoprolol Tartrate* (Lopressor*) 50 Mg Tab, 50 MG PO BID, #60 TAB 06/04/17 Lisinopril* (Lisinopril*) 20 Mg Tablet, 20 MG PO DAILY, #30 TAB 06/04/17 Furosemide* (Lasix*) 20 Mg Tablet, 20 MG PO DAILY, TAB 06/04/17 Ibuprofen* (Ibuprofen*) 600 Mg Tablet, 600 MG PO Q8 Y for PRN, TAB 06/04/17 Potassium Chloride* (Klor-Con*) 20 Meq Tabsr, 20 MEQ PO DAILY, TAB.SA 06/04/17 Hydroxyzine Hcl* (Hydroxyzine Hcl*) 25 Mg Tablet, 50 MG PO QHS Y for ITCHING, # 30 TAB 06/04/17 Fluticasone Propionate* (Fluticasone Propionate* Nasal) 50 Mcg/[place] - 16 Gm [place].susp, 1 SPRAY NASAL DAILY, #1 BOTTLE TO EACH NOSTRIL 06/04/17 Dextromethorphan Hb-Promethazine Hcl* (Promethazine DM* Syrup) 473 Ml Syrup, 5 ML PO Q6 Y for COUGH, ML 06/04/17 Primary Care Provider Care Physician No Primary 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
[2017-06-16] MEDS ORDERED: SERT50TA6 PO (01:21)
== END 2017-06-15 10:23 | disposition home or self-care (01) | DRG 313 ==
LOC: E/R 20:45 → TEL 06-13 00:37
PROVIDERS: ADMIT Internal Medicine; ATTEND Internal Medicine
DX: R07.9 Chest pain, unspecified (principal); N17.9 Acute kidney failure, unspecified; F20.9 Schizophrenia, unspecified; I12.9 Hypertensive chronic kidney disease with stage 1 through stage 4 chronic kidney disease, or unspecified chronic kidney disease; N18.9 Chronic kidney disease, unspecified; I48.2 Chronic atrial fibrillation; J45.909 Unspecified asthma, uncomplicated; F31.9 Bipolar disorder, unspecified; F43.10 Post-traumatic stress disorder, unspecified; G47.33 Obstructive sleep apnea (adult) (pediatric); D64.9 Anemia, unspecified; R73.03 Prediabetes; E66.9 Obesity, unspecified; Z68.31 Body mass index [BMI] 31.0-31.9, adult; Z87.820 Personal history of traumatic brain injury
CPT/HCPCS: 36415; 71010; 80053; 80061; 81001; 81003; 82043; 82306; 82550; 82553; 83036; 83690; 83735; 83880; 84100; 84155; 84300; 84443; 84484; 85025; 85610; 93005; 96372; 96374; 96375; J1644; J2270; J2405; J7040

== ENCOUNTER 2017-06-15 19:59 | Emergency (ER) | payer MEDICARE, MEDICAID ==
[~2017-06-15] VITALS: Ht 177.8 cm; Wt 131.5 kg
[~2017-06-15 19:59] MED LIST changes: +ACET325T40 PO
[2017-06-15 20:07] VITALS: Ht 177.8 cm; Wt 131.5 kg
--- NOTE | 2017-06-15 22:23 | ERA ---
ER Documentation Chief Complaint Date/Time DATE: 06/15/17 TIME: 22:23 Chief Complaint Anxious HPI . . The patient is a 51-year-old male, presenting to the ER because he is very anxious, requesting to talk to mental health worker he was discharged this morning from the hospital, denies auditory/visual hallucination, suicidal/ homicidal ideation. He denies headache, neck pain, chest pain, abdominal pain, vomiting, dysuria. He does not smoke nor drink does illicit drug Past medical history: History of traumatic brain injury, hypertension, history of proximal atrial fibrillation, asthma, schizophrenia, bipolar, PTSD, sleep apnea, chronic kidney disease, ADHD Past surgical history: Left knee ROS All systems reviewed and are negative except as per history of present illness. Medications Home Meds Active Scripts Sertraline Hcl* (Sertraline Hcl*) 50 Mg Tablet, 50 MG PO DAILY, #30 TAB Prov:SURESH HAMLIN MD 06/16/17 Acetaminophen (MAPAP) 325 Mg Tablet, 650 MG PO Q6H Y for PAIN LEVEL 1-3 OR FEVER for 5 Days, #1 TAB OTC Prov:IGGY BARRERA MD 06/14/17 Reported Medications Potassium Chloride* (Klor-Con*) 20 Meq Tabsr, 20 MEQ PO DAILY, TAB.SA 06/13/17 Cyclobenzaprine Hcl* (Cyclobenzaprine Hcl*) 10 Mg Tablet, 10 MG PO TID, #90 TAB 06/04/17 Aspirin* (Aspirin* EC) 81 Mg Tablet.dr, 81 MG PO DAILY, TAB 06/04/17 Albuterol Sulfate* (Ventolin HFA*) 18 Gm Hfa.aer.ad, 2 PUFF INHALATION Q4H Y for NEEDED, #1 INHALER 06/04/17 Sertraline Hcl* (Sertraline Hcl*) 25 Mg Tablet, 25 MG PO QAM, #30 TAB 06/04/17 Propafenone Hcl* (Propafenone Hcl*) 150 Mg Tablet, 225 MG PO Q8, TAB 06/04/17 Pravastatin Sodium* (Pravastatin Sodium*) 40 Mg Tablet, 40 MG PO HS, TAB 06/04/17 Metoprolol Tartrate* (Lopressor*) 50 Mg Tab, 50 MG PO BID, #60 TAB 06/04/17 Lisinopril* (Lisinopril*) 20 Mg Tablet, 20 MG PO DAILY, #30 TAB 06/04/17 Furosemide* (Lasix*) 20 Mg Tablet, 20 MG PO DAILY, TAB 06/04/17 Ibuprofen* (Ibuprofen*) 600 Mg Tablet, 600 MG PO Q8 Y for PRN, TAB 06/04/17 Potassium Chloride* (Klor-Con*) 20 Meq Tabsr, 20 MEQ PO DAILY, TAB.SA 06/04/17 Hydroxyzine Hcl* (Hydroxyzine Hcl*) 25 Mg Tablet, 50 MG PO QHS Y for ITCHING, # 30 TAB 06/04/17 Fluticasone Propionate* (Fluticasone Propionate* Nasal) 50 Mcg/[place] - 16 Gm [place].susp, 1 SPRAY NASAL DAILY, #1 BOTTLE TO EACH NOSTRIL 06/04/17 Dextromethorphan Hb-Promethazine Hcl* (Promethazine DM* Syrup) 473 Ml Syrup, 5 ML PO Q6 Y for COUGH, ML 06/04/17 Allergies Allergies: Coded Allergies: aripiprazole (Unverified Adverse Reaction, Unknown, 06/15/17) benztropine (Unverified Adverse Reaction, Unknown, 06/15/17) buspirone (Unverified Adverse Reaction, Unknown, 06/15/17) cocaine (Unverified Adverse Reaction, Unknown, 06/15/17) codeine (Unverified Adverse Reaction, Unknown, 06/15/17) divalproex sodium (Unverified Adverse Reaction, Unknown, 06/15/17) haloperidol (Unverified Adverse Reaction, Unknown, 06/15/17) lithium (Unverified Adverse Reaction, Unknown, 06/15/17) methylphenidate (Unverified Adverse Reaction, Unknown, 06/15/17) paroxetine (Unverified Adverse Reaction, Unknown, 06/15/17) quetiapine (Unverified Adverse Reaction, Unknown, 06/15/17) trazodone (Unverified Adverse Reaction, Unknown, 06/15/17) trimipramine (Unverified Adverse Reaction, Unknown, 06/15/17) PMhx/Soc History of Surgery: Yes (left knee sx, carpal tunnel sx.) Anesthesia Reaction: No Hx Neurological Disorder: No Hx Respiratory Disorders: No Hx Miscellaneous Medical Probl: No Hx Alcohol Use: No Hx Substance Use: No Hx Tobacco Use: No Smoking Status: Never smoker Physical Exam Vitals Vital Signs Date Time Temp Pulse Resp B/P Pulse Ox O2 Delivery O2 Flow Rate FiO2 06/16/17 00:15 98.2 84 16 138/79 96 Room Air 06/15/17 20:07 97.7 101 20 130/78 99 Physical Exam Const: No acute distress. Head: Atraumatic. Eyes: Normal Conjunctiva. ENT: Normal External Ears, Nose and Mouth. Neck: Full range of motion. No meningismus. Resp: Clear to auscultation bilaterally. Cardio: Regular rate and rhythm. Abd: Soft, non distended, normal bowel sounds, non tender. Skin: No petechiae or rashes. Back: No midline or flank tenderness. Ext: No cyanosis, or edema. Neur: Awake and alert. No focal deficit Psych: Anxious Result Diagram: 06/15/17 2300 06/15/17 2300 Results 24 hrs Laboratory Tests Test 06/15/17 23:00 White Blood Count 7.110^3/ul Red Blood Count 4.6410^6/ul Hemoglobin 13.2g/dl Hematocrit 40.0% Mean Corpuscular Volume 86.2fl Mean Corpuscular Hemoglobin 28.4pg Mean Corpuscular Hemoglobin Concent 33.0g/dl Red Cell Distribution Width 13.1% Platelet Count 45706^3/UL Mean Platelet Volume 10.1fl Neutrophils % 74.4% Lymphocytes % 18.2% Monocytes % 6.2% Eosinophils % 1.0% Basophils % 0.1% Nucleated Red Blood Cells % 0.0/100WBC Neutrophils # (Manual) 5.310^3/ul Lymphocytes # 1.310^3/ul Monocytes # 0.410^3/ul Eosinophils # 0.110^3/ul Basophils # 0.010^3/ul Nucleated Red Blood Cells # 0.010^3/ul Sodium Level 144mmol/L Potassium Level 4.0mmol/L Chloride Level 102mmol/L Carbon Dioxide Level 27mmol/L Anion Gap 19 Blood Urea Nitrogen 19mg/dl Creatinine 1.40mg/dl Glucose Level 116mg/dl Calcium Level 9.3mg/dl Total Bilirubin 0.0mg/dl Direct Bilirubin 0.00mg/dl Indirect Bilirubin 0.0mg/dl Aspartate Amino Transf (AST/SGOT) 18IU/L Alanine Aminotransferase (ALT/SGPT) 28IU/L Alkaline Phosphatase 72IU/L Total Protein 8.1g/dl Albumin 4.0g/dl Globulin 4.10g/dl Albumin/Globulin Ratio 0.97 Salicylates Level < 1.0mg/dl Acetaminophen Level < 10.0ug/ml Ethyl Alcohol Level < 10.0mg/dl Procedures/MDM MEDICAL MAKING DECISION: The patient is a 51-year-old male, presenting with acute anxiety. He was evaluated by telepsychiatrist Dr Garcia, recommended discharge the patient with sertraline 50 mg daily The differential diagnoses considered include but are not limited to anxiety attack, panic attack, depression, schizophrenia Departure Diagnosis: Primary Impression: Anxiety Additional Impression: Anemia Condition: Good Comments I discussed the findings with the patient. I advised the patient to follow-up with the primary physician in about 1-2 days, sooner if needed and return if any concern. SURESH HAMLIN MD Jun 15, 2017 22:23
[2017-06-15 23:20] LABS: BASOPHILS % 0.1 % (0.0-2.0); EOSINOPHILS # 0.1 10^3/ul (0.0-0.5); HEMOGLOBIN 13.2 g/dl (14.0-18.0); LYMPHOCYTES # 1.3 10^3/ul (0.8-2.9); LYMPHOCYTES % 18.2 % (15.0-51.0); MEAN CORPUSCULAR HEMOGLOBIN 28.4 pg (29.0-33.0); MEAN CORPUSCULAR VOLUME 86.2 fl (82.0-101.0); MEAN PLATELET VOLUME 10.1 fl (7.4-10.4); MONOCYTE # 0.4 10^3/ul (0.3-0.9); MONOCYTES % 6.2 % (0.0-11.0); NEUTROPHILS % 74.4 % (39.0-77.0); PLATELET COUNT 165 10^3/UL (140-415); RED BLOOD COUNT 4.64 10^6/ul (4.70-6.10); RED CELL DISTRIBUTION WIDTH 13.1 % (11.5-14.5); WHITE BLOOD COUNT 7.1 10^3/ul (4.8-10.8)
[2017-06-15 23:44] LABS: ALANINE AMINOTRANSFERASE 28 IU/L (13-69); ALBUMIN/GLOBULIN RATIO 0.97; ALKALINE PHOSPHATASE 72 IU/L (42-121); ANION GAP 19 (8-16); ASPARTATE AMINO TRANSFERASE 18 IU/L (15-46); BLOOD UREA NITROGEN 19 mg/dl (7-20); CALCIUM 9.3 mg/dl (8.4-10.2); CARBON DIOXIDE 27 mmol/L (21-31); CHLORIDE 102 mmol/L (97-110); GLUCOSE 116 mg/dl (70-220); SODIUM 144 mmol/L (135-144); TOTAL PROTEIN 8.1 g/dl (6.1-8.1)
[2017-06-16 00:02] LABS: ACETAMINOPHEN < 10.0 ug/ml (10.0-30.0); ETHANOL < 10.0 mg/dl; SALICYLATE < 1.0 mg/dl (5.0-30.0)
[2017-06-16 00:15] VITALS: BP 138/79; PULSE 84; RESP 16; TEMP 98.2
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
[2017-06-16] MEDS ORDERED: SERT50TA6 PO (01:21)
[2017-06-16 01:29] LABS: ADD UMIC YES; UR ASCORBIC ACID 40 mg/dL (NEGATIVE); UR BILIRUBIN (Dip) NEGATIVE (NEGATIVE); UR BLOOD (Dip) NEGATIVE (NEGATIVE); UR CLARITY CLEAR (CLEAR); UR COLOR YELLOW (YELLOW); UR GLUCOSE (Dip) NEGATIVE (NEGATIVE); UR KETONES (Dip) NEGATIVE (NEGATIVE); UR LEUKOCYTE ESTERASE (Dip) NEGATIVE Leu/ul (NEGATIVE); UR NITRITE (Dip) NEGATIVE (NEGATIVE); UR RBC 1 /HPF (0-5); UR SPECIFIC GRAVITY (Dip) 1.023 (1.003-1.030); UR TOTAL PROTEIN (Dip) 1+ mg/dl (NEGATIVE); UR UROBILINOGEN (Dip) NEGATIVE (NEGATIVE)
[2017-06-16 01:32] LABS: BARBITURATES Negative (NEGATIVE); BENZODIAZEPINES Negative (NEGATIVE); CANNABINOIDS Negative (NEGATIVE); COCAINE Negative (NEGATIVE); OPIATES Negative (NEGATIVE)
== END 2017-06-16 01:41 | disposition home or self-care (01) ==
LOC: E/R 19:59
DX: F41.9 Anxiety disorder, unspecified (principal); D64.9 Anemia, unspecified; I12.9 Hypertensive chronic kidney disease with stage 1 through stage 4 chronic kidney disease, or unspecified chronic kidney disease; N18.9 Chronic kidney disease, unspecified; J45.909 Unspecified asthma, uncomplicated; R40.2142 Coma scale, eyes open, spontaneous, at arrival to emergency department; R40.2252 Coma scale, best verbal response, oriented, at arrival to emergency department; R40.2362 Coma scale, best motor response, obeys commands, at arrival to emergency department; Z79.82 Long term (current) use of aspirin
CPT/HCPCS: 36415; 80053; 80306; 80307; 81001; 85025; 99284

== ENCOUNTER 2017-06-17 22:44 | Emergency (ER) | payer MEDICARE, MEDICAID ==
[~2017-06-17] VITALS: Ht 180.3 cm; Wt 134.5 kg
[~2017-06-17 22:44] MED LIST changes: +SERT50TA6 PO
[2017-06-17 22:48] VITALS: Ht 180.3 cm; Wt 134.5 kg
[2017-06-18] MEDS ORDERED: HALOPERIDOL 5 MG INJ IM ONE (00:30)
[2017-06-18] MEDS ORDERED: DIPHENHYDRAMINE 50 MG INJ IM ONE (00:30)
[2017-06-18 01:59] LABS: BASOPHILS % 0.4 % (0.0-2.0); EOSINOPHILS # 0.1 10^3/ul (0.0-0.5); EOSINOPHILS % 1.3 % (0.0-7.0); HEMATOCRIT 43.1 % (42.0-52.0); HEMOGLOBIN 13.5 g/dl (14.0-18.0); LYMPHOCYTES % 24.1 % (15.0-51.0); MEAN CORPUSCULAR HEMOGLOBIN 27.5 pg (29.0-33.0); MEAN CORPUSCULAR HGB CONC 31.3 g/dl (32.0-37.0); MEAN CORPUSCULAR VOLUME 87.8 fl (82.0-101.0); MEAN PLATELET VOLUME 10.9 fl (7.4-10.4); MONOCYTE # 0.6 10^3/ul (0.3-0.9); MONOCYTES % 6.7 % (0.0-11.0); NEUTROPHILS % 67.3 % (39.0-77.0); PLATELET COUNT 187 10^3/UL (140-415); RED BLOOD COUNT 4.91 10^6/ul (4.70-6.10); RED CELL DISTRIBUTION WIDTH 13.6 % (11.5-14.5); WHITE BLOOD COUNT 8.3 10^3/ul (4.8-10.8)
--- NOTE | 2017-06-18 02:18 | PSY ---
Date/Time of Note Date/Time of Note DATE: 06/18/17 TIME: 00:51 Psychiatric Subjective Eval Subjective Evaluation Chief Complaint: REFUSED TO TALK ABOUT HIS PROBLEMS OUT IN INTAKE. APPEARS ANXIOUS Reason for consult: complains of intense anxiety, and posttraumatic stress symptoms. History of present illness This is a 51 year old single male who has a history of frequent presentations to the ED with complaints of intense anxiety associated with feelings of being overwhelmed and spontaneous crying spells. 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 Neither of his parents were able to raise him. He has been under psychiatric care since he was 10. He presented to the ED with While at the ED, he was not cooperative, and was demanding not to be cared for my males. He was administered Haldol 5mg and Diphenhydramine 50mg IM for agitation. A psychiatric consult was requested to assess appropriate discharge planning. He was cooperative with me during the interview. He said that he was feeling anxious but was not suicidal or homicidal . He denied hallucinations or delusions. He did endorse having a history of racing negative intrusive thoughts, associated with difficulty falling as well as staying asleep. He also said that when prescribed antidepressants at higher doses he would "get angry", and his symptoms of anxiety and agitation would increase. Past psychiatric history He has been under psychiatric care since he was 10. He has been treated for Attention Deficit Disorder, Posttraumatic Stress Disorder, Major Depression, Anxiety Disorder. He said that he has an appointment with a psychiatist next week. Medical history Problems Medical Problems: (1) Anemia Status: Acute (2) Anxiety Status: Acute (3) Anxiety attack Status: Acute (4) Chest pain Status: Acute Allergies: Coded Allergies: aripiprazole (Unverified Adverse Reaction, Unknown, 06/15/17) benztropine (Unverified Adverse Reaction, Unknown, 06/15/17) buspirone (Unverified Adverse Reaction, Unknown, 06/15/17) cocaine (Unverified Adverse Reaction, Unknown, 06/15/17) codeine (Unverified Adverse Reaction, Unknown, 06/15/17) divalproex sodium (Unverified Adverse Reaction, Unknown, 06/15/17) haloperidol (Unverified Adverse Reaction, Unknown, 06/15/17) lithium (Unverified Adverse Reaction, Unknown, 06/15/17) methylphenidate (Unverified Adverse Reaction, Unknown, 06/15/17) paroxetine (Unverified Adverse Reaction, Unknown, 06/15/17) quetiapine (Unverified Adverse Reaction, Unknown, 06/15/17) trazodone (Unverified Adverse Reaction, Unknown, 06/15/17) trimipramine (Unverified Adverse Reaction, Unknown, 06/15/17) Substance Abuse Substance use: No known substance abuse Social History Marital status: single Level of education: 12th grade DPA/Conservatorship: No Occupation/Half-Way: disabled Psychiatric Objective Eval Review of Systems: Review of Systems: Applicable Constitutional: Normal Eyes: Normal ENT: Normal Neck: Normal Respiratory: Normal Chest/Breast: Normal Cardiovascular: Normal GI: Normal Genitourinary: Normal Skin: Normal Lymphatic: Normal Musculoskeletal: Normal Neurological: Normal Physical Examination: Sleep: Insomnia Appetite: Adequate Energy: Adequate Interest: Adequate Mental Status Examination: Appearance: Groomed Eye Contact: Fair Psychomotor Activity: Normal Behavior: Cooperative Speech: Clear AFFECT: Anxious Mood: Anxious Though Process: Linear Thought Content: Normal Suicidal: No Homicidal: No Orientation: x4 Insight: Intact Judgement: Intact Attention Span: Intact Assessment and Plan Assessment/Diagnosis [place] I: F31.62 Bipolar disorder, mixed, moderate without psychotic features. [place] II: Deferred [place] III: CHF, Atrial Fibrillation, [place] IV: Problems with housing and social support. [place] V: 50 Recommendation/Plan Medication Management In light of the fact that the patient reports having a history of induced dysphoric maggei when prescribed antidepressants, and reports having symptoms of intense anxiety and racing thoughts which has not been ameliorated with a variety of medications, His clinical history is consistent with someone with a bipolar disorder who is experiencing a dysphoric maggie. Lamotrigine is the drug of choice. This medication also has minimal cardiac side effects. Once Lamotrigine is in therapeutic range, then he could tolerate higher doses of an SSRI. Continue Sertraline as prescribed. Lamotrigine 25mg tab i po daily for 2 weeks, then 25mg po bid for 2 weeks, then 50mg po bid for 1 week, then 100mg bid thereafter. Psychotherapy The patient would benefit with CBT on developing coping skills. Follow-up/Disposition He does not meet 5150 criteria at this time. He denies suicidal or homicidal ideation, intent or plan at this time. 5150 Recommendation: He is not on a hold, and neither meets 5150 criteria. ENEDINA ETIENNE MD Jun 18, 2017 02:05
[2017-06-18 02:35] LABS: ALANINE AMINOTRANSFERASE 36 IU/L (13-69); ALBUMIN 4.4 g/dl (3.3-4.9); ALBUMIN/GLOBULIN RATIO 0.91; ALKALINE PHOSPHATASE 97 IU/L (42-121); ANION GAP 15 (8-16); ASPARTATE AMINO TRANSFERASE 33 IU/L (15-46); BLOOD UREA NITROGEN 16 mg/dl (7-20); CALCIUM 9.5 mg/dl (8.4-10.2); CARBON DIOXIDE 27 mmol/L (21-31); CHLORIDE 107 mmol/L (97-110); CREATININE 1.48 mg/dl (0.61-1.24); GLUCOSE 86 mg/dl (70-220); POTASSIUM 4.4 mmol/L (3.5-5.1); SODIUM 145 mmol/L (135-144); TOTAL PROTEIN 9.2 g/dl (6.1-8.1)
[2017-06-18] MEDS ORDERED: LAMO100T83 PO (03:04)
--- NOTE | 2017-06-18 03:10 | ERD ---
ER Documentation Chief Complaint Date/Time DATE: 06/18/17 TIME: 03:05 Chief Complaint REFUSED TO TALK ABOUT HIS PROBLEMS OUT IN INTAKE. APPEARS ANXIOUS HPI This 51-year-old male presents with "emotional problems". States that he sometimes gets sad for no reason he does not like any males. He prefers the company of females. He denies any thoughts of wanting to harm himself or others. He denies any physical pain or medical problems currently. ROS All systems reviewed and are negative except as per history of present illness. Medications Home Meds Active Scripts Lamotrigine* (Lamictal*) 100 Mg Tablet, 25 MG PO DAILY, #14 TAB Prov:LARRY MEHTA 06/18/17 Sertraline Hcl* (Sertraline Hcl*) 50 Mg Tablet, 50 MG PO DAILY, #30 TAB Prov:SURESH HAMLIN MD 06/16/17 Acetaminophen (MAPAP) 325 Mg Tablet, 650 MG PO Q6H Y for PAIN LEVEL 1-3 OR FEVER for 5 Days, #1 TAB OTC Prov:IGGY BARRERA MD 06/14/17 Reported Medications Potassium Chloride* (Klor-Con*) 20 Meq Tabsr, 20 MEQ PO DAILY, TAB.SA 06/13/17 Cyclobenzaprine Hcl* (Cyclobenzaprine Hcl*) 10 Mg Tablet, 10 MG PO TID, #90 TAB 06/04/17 Aspirin* (Aspirin* EC) 81 Mg Tablet.dr, 81 MG PO DAILY, TAB 06/04/17 Albuterol Sulfate* (Ventolin HFA*) 18 Gm Hfa.aer.ad, 2 PUFF INHALATION Q4H Y for NEEDED, #1 INHALER 06/04/17 Sertraline Hcl* (Sertraline Hcl*) 25 Mg Tablet, 25 MG PO QAM, #30 TAB 06/04/17 Propafenone Hcl* (Propafenone Hcl*) 150 Mg Tablet, 225 MG PO Q8, TAB 06/04/17 Pravastatin Sodium* (Pravastatin Sodium*) 40 Mg Tablet, 40 MG PO HS, TAB 06/04/17 Metoprolol Tartrate* (Lopressor*) 50 Mg Tab, 50 MG PO BID, #60 TAB 06/04/17 Lisinopril* (Lisinopril*) 20 Mg Tablet, 20 MG PO DAILY, #30 TAB 06/04/17 Furosemide* (Lasix*) 20 Mg Tablet, 20 MG PO DAILY, TAB 06/04/17 Ibuprofen* (Ibuprofen*) 600 Mg Tablet, 600 MG PO Q8 Y for PRN, TAB 06/04/17 Potassium Chloride* (Klor-Con*) 20 Meq Tabsr, 20 MEQ PO DAILY, TAB.SA 06/04/17 Hydroxyzine Hcl* (Hydroxyzine Hcl*) 25 Mg Tablet, 50 MG PO QHS Y for ITCHING, # 30 TAB 06/04/17 Fluticasone Propionate* (Fluticasone Propionate* Nasal) 50 Mcg/Vance - 16 Gm Vance.susp, 1 SPRAY NASAL DAILY, #1 BOTTLE TO EACH NOSTRIL 06/04/17 Dextromethorphan Hb-Promethazine Hcl* (Promethazine DM* Syrup) 473 Ml Syrup, 5 ML PO Q6 Y for COUGH, ML 06/04/17 Allergies Allergies: Coded Allergies: aripiprazole (Unverified Adverse Reaction, Unknown, 06/15/17) benztropine (Unverified Adverse Reaction, Unknown, 06/15/17) buspirone (Unverified Adverse Reaction, Unknown, 06/15/17) cocaine (Unverified Adverse Reaction, Unknown, 06/15/17) codeine (Unverified Adverse Reaction, Unknown, 06/15/17) divalproex sodium (Unverified Adverse Reaction, Unknown, 06/15/17) haloperidol (Unverified Adverse Reaction, Unknown, 06/15/17) lithium (Unverified Adverse Reaction, Unknown, 06/15/17) methylphenidate (Unverified Adverse Reaction, Unknown, 06/15/17) paroxetine (Unverified Adverse Reaction, Unknown, 06/15/17) quetiapine (Unverified Adverse Reaction, Unknown, 06/15/17) trazodone (Unverified Adverse Reaction, Unknown, 06/15/17) trimipramine (Unverified Adverse Reaction, Unknown, 06/15/17) PMhx/Soc Medical and Surgical Hx: pt denies Surgical Hx History of Surgery: Yes (left knee sx, carpal tunnel sx.) Anesthesia Reaction: No Hx Neurological Disorder: No Hx Respiratory Disorders: No Hx Miscellaneous Medical Probl: Yes (psych) Hx Alcohol Use: No Hx Substance Use: No Hx Tobacco Use: No Smoking Status: Never smoker Physical Exam Vitals Vital Signs Date Time Temp Pulse Resp B/P Pulse Ox O2 Delivery O2 Flow Rate FiO2 06/17/17 22:48 98.7 102 20 155/97 98 Physical Exam Const: [] No distress Head: Atraumatic Eyes: Normal Conjunctiva ENT: Normal External Ears, Nose and Mouth. Neck: Full range of motion..~ No meningismus. Resp: Clear to auscultation bilaterally Cardio: Regular rate and rhythm, no murmurs Skin: No petechiae or rashes Ext: No cyanosis, or edema Neur: Awake and alert, i and oriented 3, no focal deficits Psych: Mild anxiety Result Diagram: 06/18/17 0026 06/18/17 0026 Results 24 hrs Laboratory Tests Test 06/18/17 00:26 White Blood Count 8.310^3/ul Red Blood Count 4.9110^6/ul Hemoglobin 13.5g/dl Hematocrit 43.1% Mean Corpuscular Volume 87.8fl Mean Corpuscular Hemoglobin 27.5pg Mean Corpuscular Hemoglobin Concent 31.3g/dl Red Cell Distribution Width 13.6% Platelet Count 89522^3/UL Mean Platelet Volume 10.9fl Neutrophils % 67.3% Lymphocytes % 24.1% Monocytes % 6.7% Eosinophils % 1.3% Basophils % 0.4% Nucleated Red Blood Cells % 0.0/100WBC Neutrophils # (Manual) 5.610^3/ul Lymphocytes # 2.010^3/ul Monocytes # 0.610^3/ul Eosinophils # 0.110^3/ul Basophils # 0.010^3/ul Nucleated Red Blood Cells # 0.010^3/ul Sodium Level 145mmol/L Potassium Level 4.4mmol/L Chloride Level 107mmol/L Carbon Dioxide Level 27mmol/L Anion Gap 15 Blood Urea Nitrogen 16mg/dl Creatinine 1.48mg/dl Glucose Level 86mg/dl Calcium Level 9.5mg/dl Total Bilirubin 0.0mg/dl Direct Bilirubin 0.00mg/dl Indirect Bilirubin 0.0mg/dl Aspartate Amino Transf (AST/SGOT) 33IU/L Alanine Aminotransferase (ALT/SGPT) 36IU/L Alkaline Phosphatase 97IU/L Total Protein 9.2g/dl Albumin 4.4g/dl Globulin 4.80g/dl Albumin/Globulin Ratio 0.91 Salicylates Level Pending Acetaminophen Level Pending Ethyl Alcohol Level Pending Current Medications Medications (Trade) Dose Ordered Sig/Caroline Route PRN Reason Start Time Stop Time Status Last Admin Dose Admin Haloperidol (Haldol) 5 mg ONCE ONCE IM 06/18/17 00:30 06/18/17 00:31 DC 06/18/17 00:39 Diphenhydramine HCl (Benadryl) 50 mg ONCE ONCE IM 06/18/17 00:30 06/18/17 00:31 DC 06/18/17 00:39 Procedures/MDM Patient without suicidal homicidal ideations with renal insufficiency consistent with prior values. No new renal dysfunction. Has no physical complaints. Was evaluated by tele-psychiatry and diagnosed with dysphoric mood. I agree this is more appropriate as he has no psychotic features. Per psychiatry recommendations admit to discharge with Lamictal for 2 weeks with 25 mg. Additional additions will be performed by his outpatient follow-up. Return precautions given. He is being discharged in stable condition Departure Diagnosis: Primary Impression: Dysphoric mood Condition: Stable Patient Instructions: Depression Referrals: [facility] YOU HAVE RECEIVED A MEDICAL SCREENING EXAM AND THE RESULTS INDICATE THAT YOU DO NOT HAVE A CONDITION THAT REQUIRES URGENT TREATMENT IN THE EMERGENCY DEPARTMENT. FURTHER EVALUATION AND TREATMENT OF YOUR CONDITION CAN WAIT UNTIL YOU ARE SEEN IN YOUR DOCTORS OFFICE WITHIN THE NEXT 1-2 DAYS. IT IS YOUR RESPONSIBILITY TO MAKE AN APPOINTMENT FOR FOLOW-UP CARE. IF YOU HAVE A PRIMARY DOCTOR --you should call your primary doctor and schedule an appointment IF YOU DO NOT HAVE A PRIMARY DOCTOR YOU CAN CALL OUR PHYSICIAN REFERRAL HOTLINE AT IF YOU CAN NOT AFFORD TO SEE A PHYSICIAN YOU CAN CHOSE FROM THE FOLLOWING [facility] [address] [facility] [address] [facility] [address] [facility]. [facility] [address] [facility]. [facility] [address] [facility]. [facility]. [address] Additional Instructions: Call your primary care doctor TOMORROW for an appointment during the next 1-2 days.See the doctor sooner or return here if your condition worsens before your appointment time. LARRY MEHTA DO Jun 18, 2017 03:10
[2017-06-18 03:31] VITALS: BP 139/83; PULSE 88; RESP 15; TEMP 98.5
[2017-06-18 04:35] LABS: ACETAMINOPHEN < 10.0 ug/ml (10.0-30.0); SALICYLATE < 1.0 mg/dl (5.0-30.0)
[2017-06-18 04:57] LABS: ETHANOL < 1.0 mg/dl
== END 2017-06-18 03:48 | disposition home or self-care (01) ==
LOC: E/R 22:44
DX: F34.1 Dysthymic disorder (principal); R40.2142 Coma scale, eyes open, spontaneous, at arrival to emergency department; R40.2252 Coma scale, best verbal response, oriented, at arrival to emergency department; R40.2362 Coma scale, best motor response, obeys commands, at arrival to emergency department; Z79.82 Long term (current) use of aspirin
CPT/HCPCS: 36415; 80053; 80306; 85025; 96372; 99284; J1200; J1630

== ENCOUNTER 2017-07-29 21:10 | Emergency (ER) | payer MEDICARE, MEDICAID ==
[~2017-07-29] VITALS: Ht 177.8 cm; Wt 109.0 kg
[~2017-07-29 21:10] MED LIST changes: +LAMO100T83 PO
[2017-07-29 21:12] VITALS: Ht 177.8 cm; Wt 109.0 kg
[2017-07-29 22:05] LABS: BASOPHILS % 0.4 % (0.0-2.0); EOSINOPHILS # 0.1 10^3/ul (0.0-0.5); HEMATOCRIT 39.8 % (42.0-52.0); HEMOGLOBIN 12.4 g/dl (14.0-18.0); LYMPHOCYTES # 1.3 10^3/ul (0.8-2.9); LYMPHOCYTES % 25.1 % (15.0-51.0); MEAN CORPUSCULAR HEMOGLOBIN 27.1 pg (29.0-33.0); MEAN CORPUSCULAR HGB CONC 31.2 g/dl (32.0-37.0); MEAN CORPUSCULAR VOLUME 86.9 fl (82.0-101.0); MEAN PLATELET VOLUME 9.8 fl (7.4-10.4); MONOCYTE # 0.6 10^3/ul (0.3-0.9); MONOCYTES % 11.6 % (0.0-11.0); NEUTROPHILS % 60.5 % (39.0-77.0); PLATELET COUNT 141 10^3/UL (140-415); RED BLOOD COUNT 4.58 10^6/ul (4.70-6.10); RED CELL DISTRIBUTION WIDTH 13.4 % (11.5-14.5)
[2017-07-29 22:22] VITALS: BP 128/75; PULSE 86; RESP 16
[2017-07-29 22:25] LABS: CALCIUM 8.7 mg/dl (8.4-10.2); CREATININE 1.04 mg/dl (0.61-1.24); POTASSIUM 3.6 mmol/L (3.5-5.1)
[2017-07-29] MEDS ORDERED: KETOROLAC 15 MG INJ IV STA (22:26)
[2017-07-29 22:35] LABS: TROPONIN-I 0.024 ng/ml (0.00-0.12)
--- NOTE | 2017-07-29 23:10 | ERD ---
ER Documentation Chief Complaint Date/Time DATE: 07/29/17 TIME: 23:09 Chief Complaint pressure like chest pain since 10 minutes ago HPI This is a 51-year-old male who presents to the ER for evaluation of chest pain. He states he has had chest pain for 10 minutes and is on the left portion of his chest described as a pressure-like sensation with no radiation. No associated shortness of breath, no nausea, no vomiting or diarrhea. Patient denies any aggravating or relieving factors for her symptoms ROS All systems reviewed and are negative except as per history of present illness. Medications Home Meds Active Scripts Lamotrigine* (Lamictal*) 100 Mg Tablet, 25 MG PO DAILY, #14 TAB Prov:LARRY MEHTA DO 06/18/17 Sertraline Hcl* (Sertraline Hcl*) 50 Mg Tablet, 50 MG PO DAILY, #30 TAB Prov:SURESH HAMLIN MD 06/16/17 Acetaminophen (MAPAP) 325 Mg Tablet, 650 MG PO Q6H Y for PAIN LEVEL 1-3 OR FEVER for 5 Days, #1 TAB OTC Prov:IGGY BARRERA MD 06/14/17 Reported Medications Potassium Chloride* (Klor-Con*) 20 Meq Tabsr, 20 MEQ PO DAILY, TAB.SA 06/13/17 Cyclobenzaprine Hcl* (Cyclobenzaprine Hcl*) 10 Mg Tablet, 10 MG PO TID, #90 TAB 06/04/17 Aspirin* (Aspirin* EC) 81 Mg Tablet.dr, 81 MG PO DAILY, TAB 06/04/17 Albuterol Sulfate* (Ventolin HFA*) 18 Gm Hfa.aer.ad, 2 PUFF INHALATION Q4H Y for NEEDED, #1 INHALER 06/04/17 Sertraline Hcl* (Sertraline Hcl*) 25 Mg Tablet, 25 MG PO QAM, #30 TAB 06/04/17 Propafenone Hcl* (Propafenone Hcl*) 150 Mg Tablet, 225 MG PO Q8, TAB 06/04/17 Pravastatin Sodium* (Pravastatin Sodium*) 40 Mg Tablet, 40 MG PO HS, TAB 06/04/17 Metoprolol Tartrate* (Lopressor*) 50 Mg Tab, 50 MG PO BID, #60 TAB 06/04/17 Lisinopril* (Lisinopril*) 20 Mg Tablet, 20 MG PO DAILY, #30 TAB 06/04/17 Furosemide* (Lasix*) 20 Mg Tablet, 20 MG PO DAILY, TAB 06/04/17 Ibuprofen* (Ibuprofen*) 600 Mg Tablet, 600 MG PO Q8 Y for PRN, TAB 06/04/17 Potassium Chloride* (Klor-Con*) 20 Meq Tabsr, 20 MEQ PO DAILY, TAB.SA 06/04/17 Hydroxyzine Hcl* (Hydroxyzine Hcl*) 25 Mg Tablet, 50 MG PO QHS Y for ITCHING, # 30 TAB 06/04/17 Fluticasone Propionate* (Fluticasone Propionate* Nasal) 50 Mcg/Unity - 16 Gm Unity.susp, 1 SPRAY NASAL DAILY, #1 BOTTLE TO EACH NOSTRIL 06/04/17 Dextromethorphan Hb-Promethazine Hcl* (Promethazine DM* Syrup) 473 Ml Syrup, 5 ML PO Q6 Y for COUGH, ML 06/04/17 Allergies Allergies: Coded Allergies: aripiprazole (Unverified Adverse Reaction, Unknown, 06/15/17) benztropine (Unverified Adverse Reaction, Unknown, 06/15/17) buspirone (Unverified Adverse Reaction, Unknown, 06/15/17) cocaine (Unverified Adverse Reaction, Unknown, 06/15/17) codeine (Unverified Adverse Reaction, Unknown, 06/15/17) divalproex sodium (Unverified Adverse Reaction, Unknown, 06/15/17) haloperidol (Unverified Adverse Reaction, Unknown, 06/15/17) lithium (Unverified Adverse Reaction, Unknown, 06/15/17) methylphenidate (Unverified Adverse Reaction, Unknown, 06/15/17) paroxetine (Unverified Adverse Reaction, Unknown, 06/15/17) quetiapine (Unverified Adverse Reaction, Unknown, 06/15/17) trazodone (Unverified Adverse Reaction, Unknown, 06/15/17) trimipramine (Unverified Adverse Reaction, Unknown, 06/15/17) PMhx/Soc History of Surgery: Yes (left knee sx, carpal tunnel sx.) Anesthesia Reaction: No Hx Neurological Disorder: No Hx Respiratory Disorders: No Hx Miscellaneous Medical Probl: Yes (psych) Hx Alcohol Use: No Hx Substance Use: No Hx Tobacco Use: No Smoking Status: Unknown if ever smoked Physical Exam Vitals Vital Signs Date Time Temp Pulse Resp B/P Pulse Ox O2 Delivery O2 Flow Rate FiO2 07/29/17 22:22 86 16 128/75 97 Room Air 07/29/17 21:12 97.4 89 20 166/83 96 Physical Exam INITIAL VITAL SIGNS: Reviewed by me GENERAL: The patient is well developed and appropriate for usual state of health in no apparent distress HEENT: Pupils equal, round, and reactive to light. EOMI. There is no scleral icterus. NECK: C-spine is soft and supple, there is no meningismus. There is no cervical lymphadenopathy. LUNGS: Clear to auscultation bilaterally. There are no rales, wheezes or rhonchi. HEART: Regular rate and rhythm, no murmurs, clicks, rubs or gallops. ABDOMEN: Soft, non-tender, non-distended. There are bowel sounds in all four quadrants. No rebound or guarding. EXTREMITIES: There is no peripheral cyanosis or edema. No focal swelling or erythema. NEUROLOGICAL: The patient moves all four extremities with 5/5 strength. Cranial nerves II - XII are intact. Normal gait. Alert and oriented SKIN: There is no apparent rash or petechiae. HEME/LYMPHATIC: There is no evidence of excessive bruising or lymphedema. PSYCHIATRIC: The patient does not appear anxious or depressed. Result Diagram: 07/29/17214407/29/172144 Results 24 hrs Laboratory Tests Test 07/29/17 21:45 White Blood Count 5.010^3/ul Red Blood Count 4.5810^6/ul Hemoglobin 12.4g/dl Hematocrit 39.8% Mean Corpuscular Volume 86.9fl Mean Corpuscular Hemoglobin 27.1pg Mean Corpuscular Hemoglobin Concent 31.2g/dl Red Cell Distribution Width 13.4% Platelet Count 68561^3/UL Mean Platelet Volume 9.8fl Neutrophils % 60.5% Lymphocytes % 25.1% Monocytes % 11.6% Eosinophils % 2.0% Basophils % 0.4% Nucleated Red Blood Cells % 0.0/100WBC Neutrophils # 3.010^3/ul Lymphocytes # 1.310^3/ul Monocytes # 0.610^3/ul Eosinophils # 0.110^3/ul Basophils # 0.010^3/ul Nucleated Red Blood Cells # 0.010^3/ul Sodium Level 138mmol/L Potassium Level 3.6mmol/L Chloride Level 103mmol/L Carbon Dioxide Level 26mmol/L Anion Gap 13 Blood Urea Nitrogen 12mg/dl Creatinine 1.04mg/dl Glucose Level 116mg/dl Calcium Level 8.7mg/dl Troponin I 0.024ng/ml Current Medications Medications (Trade) Dose Ordered Sig/Caroline Route PRN Reason Start Time Stop Time Status Last Admin Dose Admin Ketorolac Tromethamine (Toradol) 15 mg ONCE STAT IV 07/29/17 22:26 07/29/17 22:29 DC 07/29/17 22:34 Procedures/MDM EKG: Rate/Rhythm: [Normal Sinus Rhythm] QRS, ST, T-waves: [No changes consistent w/ acute ischemia] Impression: [No evidence of ischemia or arrhythmia] This 51-year-old presents to the ER for evaluation of chest pain. His EKG is nonischemic troponin is negative. The patient was given Toradol with improvement of his pain. He is likely suffering from costochondritis. The patient will be discharged with instructions to return to the ER any point for reevaluation if he feels uncomfortable. He does verbalize understanding. Differential diagnoses entertained was broad with potential high acuity. Patient has been evaluated for acute myocardial infarction, unstable angina, aortic dissection, pulmonary embolism, other intrathoracic and cardiac concerns. Ultimately the patient's evaluation is nondiagnostic. Based on the patient's lack of risk factors, as well as the patient's clinical, laboratory, and imaging data, the patient appears to be low risk for these high risk causes of chest pain. Departure Diagnosis: Primary Impression: Chest pain Condition: Stable JORY MASON Jul 29, 2017 23:10
[2017-07-29] MEDS ORDERED: IBUP800T25 PO (23:11)
== END 2017-07-29 23:47 | disposition home or self-care (01) ==
LOC: E/R 21:10
DX: R07.89 Other chest pain (principal); Z79.82 Long term (current) use of aspirin
CPT/HCPCS: 36415; 80048; 84484; 85025; 96374; 99284; J1885

== ENCOUNTER 2017-07-30 10:30 | Emergency (ER) | payer MEDICARE, MEDICAID ==
[~2017-07-30] VITALS: Ht 185.4 cm; Wt 137.5 kg
[~2017-07-30 10:30] MED LIST changes: +IBUP800T25 PO
[2017-07-30 10:33] VITALS: Ht 185.4 cm; Wt 137.5 kg
--- NOTE | 2017-07-30 14:52 | ERD ---
ER Documentation Chief Complaint Date/Time DATE: 07/30/17 TIME: 14:47 Chief Complaint took 10 pills of lisinopril 10 mg at 0900 am , eitan si/hi HPI 51-year-old male presenting with medication overdose today that was unintentional per the patient. He states he took 10 of his blood pressure medications. I asked him to show me the bottle and it seems like he took 10 pills of the cyclobenzaprine 10 mg tablets that he had. He states he took them because he thought he was taking other medications but in fact was taking the same medication. He states he cannot see well. However the patient's story does not make sense. Denies any lightheadedness, chest pain, shortness of breath, vision disturbance, abdominal pain, nausea, vomiting. He does admit he is homeless. He is here with multiple bags. ROS All systems reviewed and are negative except as per history of present illness. Medications Home Meds Active Scripts Ibuprofen* (Motrin*) 800 Mg Tab, 800 MG PO Q6H Y for PAIN AND OR ELEVATED TEMP, #30 TAB Prov:JORY MASON DO 07/29/17 Lamotrigine* (Lamictal*) 100 Mg Tablet, 25 MG PO DAILY, #14 TAB Prov:LARRY MEHTA DO 06/18/17 Sertraline Hcl* (Sertraline Hcl*) 50 Mg Tablet, 50 MG PO DAILY, #30 TAB Prov:SURESH HAMLIN MD 06/16/17 Acetaminophen (MAPAP) 325 Mg Tablet, 650 MG PO Q6H Y for PAIN LEVEL 1-3 OR FEVER for 5 Days, #1 TAB OTC Prov:IGGY BARRERA MD 06/14/17 Reported Medications Potassium Chloride* (Klor-Con*) 20 Meq Tabsr, 20 MEQ PO DAILY, TAB.SA 06/13/17 Cyclobenzaprine Hcl* (Cyclobenzaprine Hcl*) 10 Mg Tablet, 10 MG PO TID, #90 TAB 06/04/17 Aspirin* (Aspirin* EC) 81 Mg Tablet.dr, 81 MG PO DAILY, TAB 06/04/17 Albuterol Sulfate* (Ventolin HFA*) 18 Gm Hfa.aer.ad, 2 PUFF INHALATION Q4H Y for NEEDED, #1 INHALER 06/04/17 Sertraline Hcl* (Sertraline Hcl*) 25 Mg Tablet, 25 MG PO QAM, #30 TAB 06/04/17 Propafenone Hcl* (Propafenone Hcl*) 150 Mg Tablet, 225 MG PO Q8, TAB 06/04/17 Pravastatin Sodium* (Pravastatin Sodium*) 40 Mg Tablet, 40 MG PO HS, TAB 06/04/17 Metoprolol Tartrate* (Lopressor*) 50 Mg Tab, 50 MG PO BID, #60 TAB 06/04/17 Lisinopril* (Lisinopril*) 20 Mg Tablet, 20 MG PO DAILY, #30 TAB 06/04/17 Furosemide* (Lasix*) 20 Mg Tablet, 20 MG PO DAILY, TAB 06/04/17 Ibuprofen* (Ibuprofen*) 600 Mg Tablet, 600 MG PO Q8 Y for PRN, TAB 06/04/17 Potassium Chloride* (Klor-Con*) 20 Meq Tabsr, 20 MEQ PO DAILY, TAB.SA 06/04/17 Hydroxyzine Hcl* (Hydroxyzine Hcl*) 25 Mg Tablet, 50 MG PO QHS Y for ITCHING, # 30 TAB 06/04/17 Fluticasone Propionate* (Fluticasone Propionate* Nasal) 50 Mcg/Perry - 16 Gm Perry.susp, 1 SPRAY NASAL DAILY, #1 BOTTLE TO EACH NOSTRIL 06/04/17 Dextromethorphan Hb-Promethazine Hcl* (Promethazine DM* Syrup) 473 Ml Syrup, 5 ML PO Q6 Y for COUGH, ML 06/04/17 Allergies Allergies: Coded Allergies: aripiprazole (Unverified Adverse Reaction, Unknown, 06/15/17) benztropine (Unverified Adverse Reaction, Unknown, 06/15/17) buspirone (Unverified Adverse Reaction, Unknown, 06/15/17) cocaine (Unverified Adverse Reaction, Unknown, 06/15/17) codeine (Unverified Adverse Reaction, Unknown, 06/15/17) divalproex sodium (Unverified Adverse Reaction, Unknown, 06/15/17) haloperidol (Unverified Adverse Reaction, Unknown, 06/15/17) lithium (Unverified Adverse Reaction, Unknown, 06/15/17) methylphenidate (Unverified Adverse Reaction, Unknown, 06/15/17) paroxetine (Unverified Adverse Reaction, Unknown, 06/15/17) quetiapine (Unverified Adverse Reaction, Unknown, 06/15/17) trazodone (Unverified Adverse Reaction, Unknown, 06/15/17) trimipramine (Unverified Adverse Reaction, Unknown, 06/15/17) PMhx/Soc History of Surgery: Yes (left knee sx, carpal tunnel sx.) Anesthesia Reaction: No Hx Neurological Disorder: No Hx Respiratory Disorders: No Hx Miscellaneous Medical Probl: Yes (psych) Hx Alcohol Use: No Hx Substance Use: No Hx Tobacco Use: No Smoking Status: Never smoker FmHx Family History: No diabetes Physical Exam Vitals Vital Signs Date Time Temp Pulse Resp B/P Pulse Ox O2 Delivery O2 Flow Rate FiO2 07/30/17 13:00 76 16 148/90 98 Room Air 07/30/17 11:10 94 16 148/95 99 Room Air 07/30/17 10:33 97.6 101 16 166/95 100 Physical Exam Const: Well-appearing, no apparent distress Head: Atraumatic Eyes: Normal Conjunctiva ENT: Normal External Ears, Nose and Mouth. Neck: Full range of motion..~ No meningismus. Resp: Clear to auscultation bilaterally Cardio: Regular rate and rhythm, no murmurs. 2+ distal pulses Abd: Soft, non tender, non distended. Normal bowel sounds Skin: No petechiae or rashes Back: No midline or flank tenderness Ext: No cyanosis, or edema Neur: GCS 15. Awake and alert, oriented 3, strength and sensations intact in all 4 extremities, normal gait Psych: Normal Mood and Affect, no SI or HI. No hallucinations. Procedures/MDM EKG: Rate/Rhythm: Normal Sinus Rhythm QRS, ST, T-waves: Left [place] deviation, LVH Impression: No evidence of ischemia or arrhythmia Urine drug screen pending MDM Patient is presenting after an unintentional overdose. Vitals are stable and there is no evidence of hypotension. I spoke with poison control who recommended an EKG, bicarb if needed for EKG changes, and monitoring for 6 hours , mainly for hypotension. Patient was monitored for about 4 hours without any hemodynamic instability. EKG did not show any acute changes. I counted the patient's pill myself and it seems like he is missing 13 pills from the prescription written on 07/22/17. I consulted social work and they provided him with outpatient resources for his homelessness. I will sign out the patient to the oncoming ED physician. Once his observation period is over and he is still stable, he may be discharged. I have a low suspicion that this was a suicide attempt. Departure Diagnosis: Primary Impression: Accidental overdose Encounter type: initial encounter Qualified Code: T50.901A - Accidental overdose, initial encounter Condition: Stable Patient Instructions: Overdose, Accidental (Adult) Referrals: [facility] YOU HAVE RECEIVED A MEDICAL SCREENING EXAM AND THE RESULTS INDICATE THAT YOU DO NOT HAVE A CONDITION THAT REQUIRES URGENT TREATMENT IN THE EMERGENCY DEPARTMENT. FURTHER EVALUATION AND TREATMENT OF YOUR CONDITION CAN WAIT UNTIL YOU ARE SEEN IN YOUR DOCTORS OFFICE WITHIN THE NEXT 1-2 DAYS. IT IS YOUR RESPONSIBILITY TO MAKE AN APPOINTMENT FOR FOLOW-UP CARE. IF YOU HAVE A PRIMARY DOCTOR --you should call your primary doctor and schedule an appointment IF YOU DO NOT HAVE A PRIMARY DOCTOR YOU CAN CALL OUR PHYSICIAN REFERRAL HOTLINE AT IF YOU CAN NOT AFFORD TO SEE A PHYSICIAN YOU CAN CHOSE FROM THE FOLLOWING [facility] CLINICS [facility] [address] [facility] [facility] [address] [facility] [facility] [address] [facility] [facility] [address] [facility] [address] [facility] [address] [facility] [facility]. [address] HALI SHIELDS MD Jul 30, 2017 14:52
[2017-07-30 15:57] LABS: BARBITURATES Negative (NEGATIVE); BENZODIAZEPINES Negative (NEGATIVE); CANNABINOIDS Negative (NEGATIVE); COCAINE Negative (NEGATIVE); OPIATES Negative (NEGATIVE)
[2017-07-30 16:48] VITALS: BP 152/98; PULSE 76; RESP 16; TEMP 98.2
== END 2017-07-30 16:48 | disposition home or self-care (01) ==
LOC: E/R 10:30
DX: T46.4X1A Poisoning by angiotensin-converting-enzyme inhibitors, accidental (unintentional), initial encounter (principal); R40.2142 Coma scale, eyes open, spontaneous, at arrival to emergency department; R40.2362 Coma scale, best motor response, obeys commands, at arrival to emergency department
CPT/HCPCS: 80307